=== PATIENT | female | born 1970 | race Asian ===

== ENCOUNTER 2019-08-24 10:00 | Outpatient (RCR) | payer BC, SELFPAY | END 2019-09-07 09:53 | disposition home or self-care (01) | LOC: PT.CARL 10:00 | PROVIDERS: Visit Provider Internal Medicine | DX: M75.40 Impingement syndrome of unspecified shoulder (principal) | CPT/HCPCS: 97010; 97014; 97033; 97110; 97140; 97163; G0283 ==

== ENCOUNTER 2024-02-02 12:39 | Outpatient (CLI) | payer OTHER, SELFPAY ==
[2024-02-02 13:14] LABS: Basophils # 0.1 K/mm3 (0-0.2); Basophils % 0.7 % (0.1-2.0); Eosinophils # 0.2 K/mm3 (0.0-0.4); Hematocrit 41.7 % (37.0-47.0); Lymphocytes # 1.6 K/mm3 (0.7-4.5); Lymphocytes % 23.4 % (10-50); Mean Corpuscular HGB Conc 31.1 g/dL (31.8-35.4); Mean Corpuscular Hemoglobin 22.8 pg (27.0-31.2); Mean Corpuscular Volume 73.4 fl (81-99); Mean Platelet Volume 6.5 fl (7.4-10.4); Monocytes # 0.2 K/mm3 (0.1-1.0); Monocytes % 3.6 % (1.7-9.3); Neutrophils # 4.6 K/mm3 (1.8-7.8); Neutrophils % 69.3 % (37.0-80.0); Platelet Count 297 K/mm3 (142-424); Red Blood Count 5.68 M/mm3 (4.20-5.40); Red Cell Distribution Width 15.6 % (11.5-17.5); White Blood Count 6.7 K/mm3 (4.8-10.8)
[2024-02-02 14:09] LABS: Alanine Aminotransferase 163 U/L (12-78); Albumin Level 4.5 g/dl (3.5-5.0); Albumin/Globulin Ratio 1.2 (1.1-1.8); Alkaline Phosphatase 136 U/L (38-126); Anion Gap 14.8 mEq/L (5-15); Aspartate Amino Transferase 78 U/L (14-36); Bilirubin,Total 0.7 mg/dl (0.2-1.3); Blood Urea Nitrogen 14 mg/dl (7-17); Calcium 10.5 mg/dl (8.4-10.2); Carbon Dioxide 27 mmol/L (22.0-30.0); Chloride 102 mmol/L (98-107); Chol/HDL Ratio 4.3 (1-3.5); Cholesterol 177 mg/dl (140-200); Estimated Glomerular Filt Rate 105 ml/min (>60); GFR (African American) 127 ML/MIN (>60); Globulin 3.7 g/dL (1.3-3.2); Glucose 90 mg/dl (74-100); HDL Cholesterol 41 mg/dl (40-60); Potassium 3.8 mmoL/L (3.5-5.1); Sodium 140 mmol/L (136-145); Total Protein,Serum 8.2 g/dl (6.3-8.2); Triglycerides 154 mg/dl (30-150); VLDL Cholesterol 31 mg/dL (0-40)
[2024-02-02 14:19] LABS: Direct LDL Cholesterol 91.56 mg/dL (100-129)
== END 2024-02-02 23:59 | disposition home or self-care (01) ==
LOC: LAB 12:42
PROVIDERS: PCP Student in an Organized Health Care Education/Training Program; Visit Provider Student in an Organized Health Care Education/Training Program
DX: I10 Essential (primary) hypertension (principal); E78.2 Mixed hyperlipidemia; Z13.1 Encounter for screening for diabetes mellitus
CPT/HCPCS: 36415; 80053; 80061; 83036; 85025

== ENCOUNTER 2024-02-11 12:19 | Outpatient (CLI) | payer OTHER, SELFPAY ==
[2024-02-11 13:07] LABS: Chloride 107 mmol/L (98-107); Sodium 141 mmol/L (136-145)
[2024-02-11 13:10] LABS: Blood Urea Nitrogen 15 mg/dl (7-17); Calcium 10.1 mg/dl (8.4-10.2); Carbon Dioxide 27 mmol/L (22.0-30.0); Estimated Glomerular Filt Rate 105 ml/min (>60); GFR (African American) 127 ML/MIN (>60); Glucose 96 mg/dl (74-100)
[2024-02-11 16:27] LABS: Intact Parathyroid Hormone 35.6 pg/mL (7.5-53.5)
[2024-02-12 19:15] LABS: Calcium, Ionized 5.7 mg/dL (4.5-5.6)
== END 2024-02-11 23:59 | disposition home or self-care (01) ==
LOC: LAB 12:20
PROVIDERS: PCP Student in an Organized Health Care Education/Training Program; Visit Provider Student in an Organized Health Care Education/Training Program
DX: E34.9 Endocrine disorder, unspecified (principal); I15.9 Secondary hypertension, unspecified
CPT/HCPCS: 36415; 80048; 82330; 83970

== ENCOUNTER 2025-01-28 12:08 | Outpatient (CLI) | payer OTHER, SELFPAY ==
--- OUTSIDE RECORDS SUMMARY | 2025-01-28 12:10 | XMS_ITS | Clinical Summary ---
Author Organization [facility] Address [address] [place] [address] Phone Care Team Providers Care Sleeve Wheel Maker Name Role Phone Refugio Schwarz Unavailable Unavailable Conditions or Problems Problem Name Problem Code Onset Date Status Entry Date Provider Comment Standard Description Annotate Elevated transaminases 357499986 (SNOMED CT) 01/27 Active 01/27 Afsaneh Brandt Elevated level of transaminase and lactic acid dehydrogenase Neutrophilic leukemoid reaction D72.823 (ICD-10-CM ) 01/13 Inactive 01/13 Janelle W Leukemoid reaction Salpingitis 49843527 (SNOMED CT) 01/20 Inactive 01/20 Janelle W Salpingitis Problem excluded fro m report: Acute Salpingitis/t ubo-ovarian abscess N70.03 (ICD-10-CM ) 01/13 Active 01/13 Janelle W Acute salpingitis and oophoritis Salpingitis 79824890 (SNOMED CT) 01/20 Removed 01/20 Luke Silva MD Salpingitis Acute tubo-ovarian abscess 946169223 (SNOMED CT) 01/13 Inactive 01/13 Hazel Selvin Acute salpingo-oopho ritis Benign Essential Hypertension 2786696 (SNOMED CT) 01/13 Active 01/13 Hazel Selvin Benign essential hypertension Neutrophilic leukemoid reaction D72.823 (ICD-10-CM ) 01/13 Removed 01/13 Hazel Selvin Leukemoid reaction Other obesity due to excess calories 814291411 (SNOMED CT) 01/13 Active 01/13 Osiel Garcia Simple obesity E. Coli sepsis A41.51 (ICD-10-CM ) 01/13 Active 01/13 Janelle Levine Sepsis due to Escherichia coli [E. coli] Medications Medication Instructions Start Date Stop Date Generic Name NDC Provider INVANZ 1 GM INTRAVENOUS SOLUTION RECONSTITUTED 1 gm IV Q 24hrs/OPAT ERTAPENEM SODIUM 67773853161 Annmarie Poon RN FLUCONAZOLE 100 MG TABS one tablet each day FLUCONAZOLE [id number] Luke Silva MD DIFLUCAN 200 MG TABS Take one by mouth once daily. FLUCONAZOLE [id number] Luke CALDERONANZ 1 GM INTRAVENOUS SOLUTION RECONSTITUTED 1 gm IV Q 24hrs/OPAT ERTAPENEM SODIUM 84738879355 Afsaneh Dale RN SINGULAIR 10 MG TABS by mouth daily MONTELUKAST SODIUM [id number] Osiel K LISINOPRIL 20 MG TABS by mouth daily LISINOPRIL [id number] Osiel K Medications Administered No information available. Allergies, Adverse Reactions, Alerts No information available. Results Date Name Value Unit Range Flag Description Office Visit: rm 11 MEDS REVIEW Done Documenta tion of current medications (procedure) ORALTOBACUSE Never Tobacco smoking status SMOK STATUS Never smoker Tobacco smoking status Lab Report: CBC WITH AUTO DI FFERENTIAL IMMATUREGRAN 0.01 10*3/MM3 0.00-0.03 Immature granulocytes [#/volume] in Blood BASO# 0.03 10*3/mm3 0.00-0.20 Basophils [#/vol ume] in Blood EOS ABSLT 0.23 10*3/uL 0.00-0.30 Eosinophi ls [#/volume] in Blood MONOSCT AUTO 0.28 10*3/uL 0.00-1.00 Monocy lina [#/volume] in Blood by Automated count LYMPHCT AUTO 1.82 10*3/mm3 0.60-4.80 Lymph ocytes [#/volume] in Blood by Automated count ABS NEUTROPH 4.65 10*3/uL 1.50-8.30 Neutro phils [#/volume] in Blood IMM GRANU % 0.1 % 0.0-0.6 Immature granulocytes/100 leukocytes in Blood [id number] 0.4 % 0.0-1.0 GE use only - for [employer] import when terms are not otherwise specified % EOS AUTO 3.3 % 0.0-3.0 H Eosinophil s/100 leukocytes in Blood by Automated count MONOCYTE % 4.0 % 0.0-12.0 Monocytes /100 leukocytes in Blood by Automated count LYMPHS % 25.9 % 24.0-44.0 Lymphocyte s/100 leukocytes in Blood by Automated count PMN % 66.3 % 41.0-71.0 Neutrophils /100 leukocytes in Blood by Automated count PLATELETS 337 10*3/mm3 150-450 Platelets [#/volume] in Blood by Automated count RDW 15.1 % 11.3-14.5 H Erythrocyte distribution width [Ratio] by Automated count MCHC 29.8 G/DL 32.0-36.0 L MCHC [Mass/ volume] by Automated count MCH 21.4 pg 27.0-31.0 L MCH [Entiti c mass] by Automated count MCV 71.5 fL 80.0-99.0 L MCV [Entiti c volume] by Automated count HCT 39.2 % 34.5-44.0 Hematocrit [Volume Fraction] of Blood by Automated count HGB 11.7 g/dL 11.5-15.5 Hemoglobin [Mass/volume] in Blood RBC 5.48 10*6/mm3 3.89-5.14 H Erythrocyt es [#/volume] in Blood by Automated count WBC 7.02 10*3/mm3 3.50-10.8 0 Leukocytes [#/volume] in Blood by Automated count Lab Report: BASIC METABOLIC PANEL ANIONGAP 8.0 mmol/L 3.0-11.0 anion gap, serum BUN/CREAT 18.3 7.0-25.0 Urea nitrogen/Creatinine [Mass Ratio] in Serum or Plasma GFRC 108 mL/min/1. 73m2 >60 Glomerular Filtration Rate Calculation CALCIUM 9.3 mg/dL 8.7-10.4 Calcium [Moles/volume] in Serum or Plasma CO2 25.0 mmol/L 20.0-31.0 Carbon diox parihs, total [Moles/volume] in Venous blood CHLORIDE 105 mmol/L 99-109 Chloride [Moles/volume] in Serum or Plasma POTASSIUM 4.0 mmol/L 3.5-5.5 Potassium [Moles/volume] in Serum or Plasma SODIUM 138 mmol/L 132-146 Sodium [Moles/volume] in Serum or Plasma CREATININE 0.60 mg/dL 0.60-1.30 Creatini ne [Mass/volume] in Serum or Plasma BUN 11 mg/dL 9-23 Urea nitrogen [Mass/volume] in Serum or Plasma GLUCOSE SER 186 mg/dL 70-100 H Glucose [Mass/volume] in Serum or Plasma Lab Report: SEDIMENTATION RA TE ESR 51 mm/h 0-20 H Erythrocyte sedimentation rate by Westergren method Lab Report: C-REACTIVE PROTE IN CRP 0.07 mg/dL 0.00-1.00 C reactive protein [Mass/volume] in Serum or Plasma Lab Report: HEPATIC FUNCTION PANEL BILI DIRECT 0.1 mg/dL 0.0-0.2 Bilirubin .direct [Mass/volume] in Serum or Plasma BILI TOTAL 0.3 mg/dL 0.3-1.2 Bilirubin. total [Mass/volume] in Serum or Plasma ALK PHOS 112 U/L 25-100 H Alkaline kelly sphatase [Enzymatic activity/volume] in Blood SGOT (AST) 36 U/L 0-33 H Aspartate aminotransferase [Enzymatic activity/volume] in Serum or Plasma SGPT (ALT) 71 U/L 7-40 H Alanine aminotransferase [Enzymatic activity/volume] in Serum or Plasma ALBUMIN 4.20 g/dL 3.20-4.80 Albumin [Mass/volume] in Serum or Plasma PROTEIN, TOT 8.0 g/dL 5.7-8.2 Protein [Mass/volume] in Serum or Plasma Clinical Lists Update: [facility] Patient's prefered method of contact Plan of Care Type Date Detail Referral CT scan ABD/Pelv is with contrast Referral CT scan ABD/Pelv is with contrast Pending order Hepatic Function Panel Pending order CBC with Differe ntial Pending order BMP Pending order Sedimentation Ra te (ESR) Pending order C- reactive prot ein Pending order BMP Pending order CBC with Differe ntial Pending order C- reactive prot ein Pending order Sedimentation Ra te (ESR) Pending order STAT Labs Pending order CMP Pending order CBC with Differe ntial Pending order Sedimentation Ra te (ESR) Pending order C- reactive prot ein Pending order STAT Labs Pending order PICC Removal Pending order Discontinue IV a ntibiotics Pending order New Oral Antibio tic Pending order CMP Pending order CBC with Differe ntial Pending order C- reactive prot ein Pending order Sedimentation Ra te (ESR) Pending order CMP Pending order CBC with Differe ntial Pending order C- reactive prot ein Pending order Sedimentation Ra te (ESR) Pending order Continue IV anti biotics Pending order CMP Pending order CBC with Differe ntial Pending order C- reactive prot ein Pending order Sedimentation Ra te (ESR) Pending order Weekly PICC Line Care Pending order Ertapenem Pending order PICC Line Insert ion Pending order Stat Weekly Labs Pending order Continue IV anti biotics Pending order Weekly PICC Line Care Pending order Weekly Labs (Con tinue) Pending order PICC Line Insert ion Pending order New IV antibioti c Pending order Ertapenem Pending order CMP Pending order CBC with Differe ntial Pending order C- reactive prot ein Pending order Sedimentation Ra te (ESR) Patient education Ertapenem%20(I njection)%20(Injectable) Patient education WEIGHT%20MANAG EMENT Patient education WEIGHT%20MANAG EMENT Patient education WEIGHT%20MANAG EMENT Patient education WEIGHT%20MANAG EMENT Patient education WEIGHT%20MANAG EMENT Patient education WEIGHT%20MANAG EMENT Patient education WEIGHT%20MANAG EMENT Patient education WEIGHT%20MANAG EMENT Patient education WEIGHT%20MANAG EMENT Patient education WEIGHT%20MANAG EMENT Patient education WEIGHT%20MANAG EMENT Patient education WEIGHT%20MANAG EMENT Patient education WEIGHT%20MANAG EMENT Patient education WEIGHT%20MANAG EMENT Patient education WEIGHT%20MANAG EMENT Patient education WEIGHT%20MANAG EMENT Procedures Code Procedure Name Date Entry Date CPT-71050 Hepatic Function Panel 04/08 [id number] CBC with Differential 2016 CPT-75212 BMP CPT-25955 Sedimentation Rate (ESR) 201 02/08/31 CPT-25855 C- reactive protein CPT-95621 BMP [id number] CBC with Differential 2016 CPT-26500 C- reactive protein CPT-07544 Sedimentation Rate (ESR) 201 02/08/10 CPT-05565 CT scan ABD/Pelvis with contrast CPT-sl STAT Labs CPT-63763 CMP [id number] CBC with Differential 2016 CPT-31956 Sedimentation Rate (ESR) 201 02/07/17 CPT-68932 C- reactive protein CPT-sl STAT Labs CPT-PICREM PICC Removal CPT-DC Discontinue IV antibiotics 2 CPT-yury New Oral Antibiotic CPT-00969 CMP [id number] CBC with Differential 2016 CPT-31789 C- reactive protein CPT-37471 Sedimentation Rate (ESR) 201 02/07/03 CPT-08756 CT scan ABD/Pelvis with contrast CPT-93721 CMP [id number] CBC with Differential 2016 CPT-79505 C- reactive protein CPT-96943 Sedimentation Rate (ESR) 201 02/06/26 CPT-ca Continue IV antibiotics 2016 CPT-79169 CMP [id number] CBC with Differential 2016 CPT-73361 C- reactive protein CPT-82602 Sedimentation Rate (ESR) 201 02/06/19 CPT-wpc Weekly PICC Line Care 01/20 CPT-J1335 Ertapenem CPT-79556 PICC Line Insertion CPT- stat weekly Stat Weekly Labs CPT-ca Continue IV antibiotics 2016 CPT-wpc Weekly PICC Line Care 01/13 CPT-cwl Weekly Labs (Continue) 01/13 CPT-34971 PICC Line Insertion CPT-maryann New IV antibiotic CPT-J1335 Ertapenem CPT-93687 CMP [id number] CBC with Differential 2016 CPT-18848 C- reactive protein CPT-25033 Sedimentation Rate (ESR) 201 02/07/12 Vital Signs Date Name Value Unit Description BMI (Body Mass Index) 32.58 kg/m2 Bod y Mass Index (Ratio) Body Temperature 98.7 [degF] temperat ure E&M BP Diastolic 68 mm[Hg] blood pressu re, diastolic BP Systolic 122 mm[Hg] blood pressur e, systolic Heart Rate 70 /min pulse rate Height 64 [in_us] height E&M Respiratory Rate 14 /min respirat ory rate E&M Weight Measured 189.8 [lb_av] weight E& M Weight Measured 189.8 [lb_av] weight E& M Immunizations No information available. Advance Directives Directive Description Start Date PATIENT DOES NOT HAVE ADVANCED DIRECTIVE S OF 01/13/17.
--- OUTSIDE RECORDS SUMMARY | 2025-01-28 12:11 | XMS_ITS | Referral Summary ---
Author Organization [facility] Address [address] [place] [address] Care Team Providers Care Packaging Sales Consultant Name Role Phone Lambert Quiroga MD Primary Care Provider +1- [phone] Encounters Date Type Department Care Team Description 01/18/2025 Refill [facility] Primary Care & Internal Med [address] [place] [address] Lambert Quiroga MD 12/24/2024 Refill [facility] Primary Care & Internal Med [address] [place] [phone] Lambert Quiroga MD from Last 3 Months Allergies Active Allergy Reactions Criticality Noted Date Comments Moxifloxacin Low 10/04/2022 1facial redness, rash per patient. Medications multivitamin per tablet Take 1 tablet by mouth daily. Active cetirizine (ZyrTEC) 10 MG tablet Take 1 tablet (10 mg total) by mouth daily. Active estradioL (ESTRACE) 1 MG tabletIndications: History of postmenopausal HRT Take 1 tablet (1 mg total) by mouth daily. 90 tablet 3 4 03/14/20 25 Active lisinopriL (ZESTRIL) 20 MG tablet Take 1 tablet (20 mg total) by mouth daily. 90 tablet 5 Active montelukast (SINGULAIR) 10 mg tablet Take 1 tablet (10 mg total) by mouth every morning. 90 tablet 5 Active montelukast (SINGULAIR) 10 mg tablet Take 1 tablet (10 mg total) by mouth every morning. 90 tablet 2 4 01/19/20 25 Discontinu ed(Reorder ) Active Problems Problem Noted Date Diagnosed Date Hepatitis C antibody test positive 10/10/2022 Overview (10/10/2022): RNA neg Hypertension 10/03/2022 Migraine headache 10/03/2022 Asthma 08/24/2020 Hormone replacement therapy 01/05/2020 Resolved Problems Problem Noted Date Diagnosed Date Resolved Date Seasonal allergic rhinitis 10/03/2022 0 01/30/2024 Benign essential hypertension 08/24/2020 01/30/2024 Mixed hypercholesterolemia a nd hypertriglyceridemia 01/10/2020 01/30/2024 Allergic rhinitis 01/05/2020 01/30/2024 Rotator cuff impingement syndrome 07/06/2019 01/30/2024 Immunizations Name Administration Dates Next Due Hepatitis A Adult 11/17/2018,04/21/2018 Hepatitis B 06/01/2022,01/10/2022,12/07/2021 Influenza Four-QIV 6MO+ PF IM ([id number]) 2 Influenza Four-QIV PF 18+ YR 05/22/2016 Influenza Four-qiv Pf 05/05/2021,04/27/2020,04/04 Influenza Three-TIV Non-PF 5+ YR 04/22/2018 Influenza Three-tiv Non-pf 04/21/2018 PPD Test 09/14/2019 Pneumococcal Conjugate (Prevnar) 13-Valent 02/20 Td 7+ years, (TDVAX) 2 Lf te tanus toxoid preservative free 07/04/2011 Tdap 04/27/2020 Varicella (VARIVAX) 08/02/1998,12/21/1997 Social History Tobacco Use Types Packs/Day Years Used Date Smoking Tobacco: Never Smokeless Tobacco: Never Tobacco Cessation:Counseling Given: Not Answered Alcohol Use Standard Drinks/Week Comments Yes 1 (1 standard drink = 0.6 oz pur e alcohol) PHQ-2 Answer Date Recorded Patient Health Questionnaire-2 Score 0 01/30/2024 Interpersonal Safety Answer Date Record ed Family or friends hurt you Not on file 08/22 Family or friends insult you Not on file Family or friends threaten you Not on file 0 08/22/2023 Family or friends scream or curse at you Not on file 08/22/2023 Housing Stability Answer Date Recorded Living situation today Not on file Living situation problems Not on file 2023 Family and Community Support Answer Oscar e Recorded Help with Day to Day Activities Not on file 08/22/2023 Feeling Lonely or Isolated Not on file 08/22 Educational Attainment Answer Date Hilario rded Speak language other than Tanzanian at home Not on file 08/22/2023 Want help with school or training Not on file 08/22/2023 Depression Answer Date Recorded PHQ-2 Risk Not on file 08/22/2023 Disabilities Answer Date Recorded Difficulty concentrating Not on file 024 Difficulty doing errands alone Not on file 0 08/22/2023 Substance Use Answer Date Recorded Used prescription meds for non-medical reasons N ot on file 08/22/2023 Used illegal drugs past 12 months Not on file 08/22/2023 Comments No Sex and Gender Information Value Date Recorded Sex Assigned at Not on file Legal Sex Female 3:37 PM CDT Gender Identity Not on file Sexual Orientation Not on file Last Filed Vital Signs Vital Sign Reading Time Taken Comments Blood Pressure 126/86 01/30/2024 9:13 AM EDT Pulse 83 01/30/2024 9:13 AM EDT Temperature 36.2 C (97.1 F) 01/24/2023 11:59 AM EDT Respiratory Rate 18 01/24/2023 11:5 9 AM EDT Oxygen Saturation 97% 01/30/2024 9:13 AM EDT Inhaled Oxygen Concentration - - Weight 85.6 kg (188 lb 12.8 oz) 01/30/2024 9:13 AM EDT Height 160 cm (5' 3 ) 01/30/2024 9:13 AM EDT Body Mass Index 33.44 01/30/2024 9:13 AM EDT Plan of Treatment Upcoming Encounters Date Type Department Care Team (Late st Contact Info) Description 02/11/2025 10:30 AM EDT Office Visit [facility] Primary Care & Internal Med [address] [place] [address] [phone] Lambert Quiroga MD [address] [place] [address] Procedures Procedure Name Priority Date/Time Associated Diagnosis Comments MM DIGITAL MAMMO SCREEN WITH EDSON BILATERAL Routine 07/06/2024 5:00 PM EST Encounter for screening mammogram for malignant neoplasm of breast HEPATITIS C ANTIBODY Routine 10/04/2022 12:09 PM EST Healthcare maintenance Need for hepatitis C screening test LIPID PANEL Routine 10/04/2022 12:09 PM EST Healthcare maintenance from Last 3 Months or Most Recently Relevant to Health Maintenance Results * MM digital mammo screen with edson bilateral (07/06/2024 5:00 PM EST) Anatomical Region Laterality Modality Breast Bilateral Mammography 07/06/2024 5:05 PM EST Impressions 07/06/2024 5:10 PM EST FINAL IMPRESSION: Stable mammogram. No findings suspicious for malignancy. ACR BI-RADS 2: Benign findings. RECOMMENDATIONS: Annual screening mammography. This report will serve as the order for the recommended imaging studies/procedures. A letter including results and recommendations was sent to the patient. Density notification was included for all patients. Patient information was entered into a reminder system with a target due date for the next mammogram. At our facility, a sitka marker is positioned over a visible skin lesion and a linear marker is used to indicate a scar. A triangular marker is placed on a self reported palpable finding. Note: Mammography does not detect approximately 10-15% of breast cancers. An annual clinical breast exam by the patient's breast care physician and regular monthly self breast exams by the patient are integral parts of breast cancer screening, in addition to annual mammography. A normal mammogram does not completely exclude the presence of breast cancer, especially if there is an abnormal finding on physical exam. When clinically indicated, a biopsy should not be deferred because of a normal mammogram report. Narrative 07/06/2024 5:10 PM EST PROCEDURE: Digital screening mammogram with Digital Breast Tomosynthesis (DBT). REASON FOR EXAM: Routine screening. FAMILY HISTORY: Strong family history of breast cancer. COMPARISON STUDY: 2022 through 2019 from [facility] FINDINGS: Craniocaudal and mediolateral oblique images of both breasts were obtained in 2D and DBT modes. Synthesized views were reconstructed from DBT data. The breast tissue has pattern b (scattered fibroglandular densities). Asymmetries are stable. There is no evidence of dominant mass, architectural distortion, or suspicious calcifications. The mammogram was interpreted with the benefit of computer aided detection (CAD). Lambert Quiroga MD IMG MAMMOGRAPHY ORDERABLES Final Result * (ABNORMAL) Hepatitis C antibody (10/04/2022 12:09 PM EST) Hep C Virus Ab Reactive( A) Non Reactive [facility] Comment: HCV antibody alone does not differentiate between previously resolved infection and active infection. Equivocal and Reactive HCV antibody results should be followed up with an HCV RNA test to support the diagnosis of active HCV infection. Blood 10/04/2022 12:0 9 PM EST 10/04/2022 Narrative [facility] - 10/07/2022 12:07 PM EST Performed at: [address] [id number] Gold Miner: Steven Saleem PhD, Phone: [phone] Lambert Quiroga MD LAB BLOOD ORDERABLES Final Result [facility] * (ABNORMAL) Lipid panel (10/04/2022 12:09 PM EST) Cholesterol, Total 162 100 - 199 mg/dL [facility] Triglycerides 68 0 - 149 mg/dL [facility] HDL Cholesterol 45 >39 mg/dL [facility] VLDL Cholesterol Prem 13 5 - 40 mg/dL [facility] LDL Calculated 104(H) 0 - 99 mg/dL [facility] Blood 10/04/2022 12:0 9 PM EST 10/04/2022 Narrative [facility] - 10/07/2022 12:07 PM EST Performed at: - [facility] [id number] Gold Miner: Steven Saleem PhD, Phone: [phone] us Lambert Quiroga MD LAB BLOOD ORDERABLES Final Result [facility] from Last 3 Months or Most Recently Relevant to Health Maintenance Insurance [facility] Care Teams Packaging Sales Consultant Relationship Specialty Start Date End Date Lambert Quiroga MD [address] [facility] [address] [place] [address] PCP - General Family Medicine 06/18/22
--- OUTSIDE RECORDS SUMMARY | 2025-01-28 12:11 | XMS_ITS | Encounter Summary ---
Author Organization [facility] Address [address] [place] [address] Care Team Providers Care Coremaking Supervisor Name Role Phone Lambert Quiroga MD Primary Care Provider +1- [phone] Reason for Visit * Reason Onset Date Comments Medication Refill 12/22/2023 Encounter Details Date Type Department Care Team (Late st Contact Info) Description 12/22/2023 Refill [facility] Primary Care & Internal Med [address] [place] [address] [address] [place] [phone] Lambert Quiroga MD [address] [place] [address] Social History Tobacco Use Types Packs/Day Years Used Date Smoking Tobacco: Never Smokeless Tobacco: Never Alcohol Use Standard Drinks/Week Comments Never 0 (1 standard drink = 0.6 oz pur e alcohol) PHQ-2 Answer Date Recorded Patient Health Questionnaire-2 Score 0 10/04/2022 Interpersonal Safety Answer Date Record ed Family [...] Date Hilario rded Speak language other than [place] Citizen at home Not on file 08/22/2023 Want [...] on file Sexual Orientation Not on file documented as of this encounter Plan of Treatment Upcoming Encounters Date Type Department Care Team (Late st Contact Info) Description 02/11/2025 10:30 AM EDT Office Visit [facility] Primary Care & Internal Med [address] [place], [place] [phone] Lambert Quiroga MD [address] [place] [address] documented as of this encounter Visit Diagnoses Not on filedocumented in this encounter Care Teams Coremaking Supervisor Relationship Specialty [place] [address] [place] [phone] PCP - General Family Medicine 06/18/22 documented as of this encounter
--- OUTSIDE RECORDS SUMMARY | 2025-01-28 12:11 | XMS_ITS | Encounter Summary ---
Author Organization [facility] Address [address] [place] [address] Care Team Providers Care Jalousies Installer Name Role Phone Lambert Quiroga MD Primary Care Provider +1- [phone] Reason for Visit * Reason Onset Date Comments Medication Refill 12/24/2024 Encounter Details Date Type Department Care Team (Late st Contact Info) Description 12/24/2024 Refill [facility] Primary Care & Internal Med [address] [facility] [address] [place] [phone] Lambert Quiroga MD [address] [place] [phone] Social History Tobacco Use Types Packs/Day Years Used Date Smoking Tobacco: Never Smokeless Tobacco: Never Alcohol Use Standard Drinks/Week Comments Yes 1 [...] Date Hilario rded Speak language other than Turkmen at home Not on file 08/22/2023 Want [...] Description 02/11/2025 10:30 AM EDT Office Visit [facility] Primary Care & Internal Med [address] [place], [place] [phone] Lambert Quiroga MD [address] [place] [address] documented as of this encounter Visit Diagnoses Not on filedocumented in this encounter Care Teams Jalousies Installer Relationship Specialty [place] [address] [place] [phone] PCP - General Family Medicine 06/18/22 documented as of this encounter
--- OUTSIDE RECORDS SUMMARY | 2025-01-28 12:11 | XMS_ITS | Encounter Summary ---
Author Organization [facility] Address [address] [place] [address] Care Team Providers Care Monorail Operator Name Role Phone Lambert Quiroga MD Primary Care Provider +1- [phone] Reason for Visit * Reason Onset Date Comments Medication Refill 01/18/2025 Encounter Details Date Type Department Care Team (Late st Contact Info) Description 01/18/2025 Refill [facility] Primary Care & Internal Med [address] [facility] [address] [place] [phone] Lambert Quiroga MD [address] [place] [phone] Social History Tobacco Use Types Packs/Day [...] on file 08/22 Educational Attainment Answer Date Hliario rded Speak language other than Niuean at home Not on file 08/22/2023 Want [...] Description 02/11/2025 10:30 AM EDT Office Visit [facility] Primary Care & Internal Med [address] [place], [place] [phone] Lambert Quiroga MD [address] [place] [address] documented as of this encounter Visit Diagnoses Not on filedocumented in this encounter Care Teams Monorail Operator Relationship Specialty [place] [address] [place] [phone] PCP - General Family Medicine 06/18/22 documented as of this encounter
--- OUTSIDE RECORDS SUMMARY | 2025-01-28 12:11 | XMS_ITS | Encounter Summary ---
Author Organization [facility] [employer] Address [address] [place] [address] Care Team Providers Care It Consultant Name Role Phone Lambert Quiroga MD Primary Care Provider +1- [phone] Reason for Visit * Reason Onset Date Comments Medication Refill 12/14/2022 Encounter Details Date Type Department Care Team (Late Contact Info) Description 12/14/2022 Refill [facility] Primary Care & Internal Med [address] [place] [phone] Lambert Quiroga MD [address] [place] [phone] Social History Tobacco Use Types Packs/Day Years Used Date Smoking Tobacco: Never Smokeless Tobacco: Never PHQ-2 Answer Date Recorded Patient Health Questionnaire-2 Score 0 10/04/2022 Comments No Sex and Gender Information Value Date Recorded Sex Assigned at Not on file Legal Sex Female 3:37 PM CDT Gender Identity Not on file Sexual Orientation Not on file COVID-19 Exposure Response Date Recorded In the last 10 days, have yo u been in contact with someone who was confirmed or suspected to have Coronavirus/COVID-19? No / Unsure 12/11/2022 11:44 AM EDT documented as of this encounter Plan of Treatment Upcoming Encounters Date Type Department Care Team (Late Contact Info) Description 02/11/2025 10:30 AM EDT Office Visit [facility] Primary Care & Internal Med [address] [place] [phone] Lambert Quiroga MD [address] [facility] [address] [place] [address] documented as of this encounter Visit Diagnoses Not on filedocumented in this encounter Care Teams It Consultant Relationship Specialty Start Date End Date Lambert Quiroga MD [address] [facility] [address] [place] [address] PCP - General Family Medicine 06/18/22 documented as of this encounter
--- OUTSIDE RECORDS SUMMARY | 2025-01-28 12:11 | XMS_ITS | Encounter Summary ---
Author Organization [employer] Address [address] [place] [address] Care Team Providers Care Shipping Manager Name Role Phone Lambert Quiroga MD Primary Care Provider +1- [phone] Reason for Visit * Reason Comments Medication Refill Encounter Details Date Type Department Care Team ([facility] Contact Info) Description 06/10/2023 Refill [facility] Primary Care & Internal Med [address] [place], [place] [phone] Lambert Quiroga MD [address] [place] [phone] Social History Tobacco Use Types Packs/Day [...] Upcoming Encounters Date Type Department Care Team ([facility] Contact Info) Description 02/11/2025 10:30 AM EDT Office Visit [facility] Primary Care & Internal Med [address] [place] [phone] Lambert Quiroga MD [address] [place] [phone] documented as of this encounter Visit Diagnoses Not on filedocumented in this encounter Care Teams Shipping Manager Relationship Specialty Start Date End Date Lambert Quiroga MD [address] [facility] [address] [place] [phone] PCP - General Family Medicine 06/18/22 documented as of this encounter
--- OUTSIDE RECORDS SUMMARY | 2025-01-28 12:11 | XMS_ITS | Clinical Summary ---
Author Organization [employer] Address [address] [place] [address] Care Team Providers Care Call Center Operator Name Role Phone Lambert Quiroga MD Primary Care Provider +1- [phone] Allergies Active Allergy Reactions Criticality Noted Date [...] 01/30/2024 Rotator cuff impingement syndrome 07/06/2019 01/30/2024 Encounters Date Type Department Care Team Description 01/18/2025 Refill [facility] Primary Care & Internal Med [address] [place], [place] [phone] Lambert Quiroga MD 12/24/2024 Refill [facility] Primary Care & Internal Med [address] [place] [phone] Lambert Quiroga MD from Last 3 Months Immunizations Name Administration Dates Next Due Hepatitis A Adult 11/17/2018,04/21/2018 Hepatitis B 06/01/2022,01/10/2022,12/07/2021 Influenza Four-QIV 6MO+ PF IM ([id number]) 2 Influenza Four-QIV PF 18+ YR 05/22/2016 Influenza Four-qiv Pf 05/05/2021,04/27/2020,04/04 Influenza Three-TIV Non-PF 5+ YR 04/22/2018 Influenza Three-tiv Non-pf 04/21/2018 PPD Test 09/14/2019 Pneumococcal Conjugate (Prevnar) 13-Valent 02/20 Td 7+ years, (TDVAX) 2 Lf te tanus toxoid preservative free 07/04/2011 Tdap 04/27/2020 Varicella (VARIVAX) 08/02/1998,12/21/1997 Family History Medical History Relation Name Comments Arthritis Brother Clive Gout Hypertension Brother Clive Stroke Brother Clive Arthritis Father Clive Gout Colon cancer Father Clive Hypertension Father Clive Diabetes Mother [place] Heart disease Mother [place] Hypertension Mother Maryam Migraines Mother [place] Stroke Mother Maryam Thyroid disease Mother Maryam Arthritis Other Glaucoma Other Breast cancer Sister Eileen Hypertension Sister Eileen Thyroid disease Sister Eileen Relation Name Status Comments Brother Clive Father Clive Mother Maryam Other Sister Eileen Social History Tobacco Use Types Packs/Day Years [...] Date Hilario rded Speak language other than Venezuelan at home Not on file 08/22/2023 Want [...] Description 02/11/2025 10:30 AM EDT Office Visit [facility] Primary Care & Internal Med [address] [facility] [address] [phone] Lambert Quiroga MD [address] [place] [phone] Health Maintenance Due Date Last Done Comments CT Colonography 1972 FOBT/FIT 1972 Fit-DNA (Cologuard) 1972 Sigmoidoscopy 1972 Pneumococcal 50+ years (2 of 2 - PPSV23) 04/17/2015 02/20/2015 Shingles Vaccine (Zoster) (1 of 2) 01/01/2022 COVID-19 VACCINE (4 - 2023-2 5 season) 2024 05/17/2021, 09/28/2020, 08/31/2020 Depression Screening (12+) 01/29/2025 01/30/2024 Tobacco Cessation Counseling and Screening (12+) 01/29/2025 01/30/2024 Lipid Panel 10/04/2025 10/04/2022 Breast Cancer Screening 07/06/2026 07/06/20, 12/11/2022, 06/18/2022, Additional history exists DTAP/TDAP/TD VACCINES (3 - T d or Tdap) 04/27/2030 04/27/2020, 07/04/2011 Colonoscopy 01/24/2033 01/24/2023, 05/20/2018 Colorectal Cancer Screening 01/24/2033 Pap Smear Discontinued 11/27/2016 Hepatitis C Screening Completed 10/04/2022, 022 Influenza Vaccine Completed 05/21/2024, , 04/22/2018, Additional history exists HIV Screening Discontinued Procedures Procedure Name Priority Date/Time Associated Diagnosis [...] the next mammogram. At our facility, a [place] marker is positioned over a visible skin [...] cancer. COMPARISON STUDY: 2022 through 2019 from [facility] FINDINGS: Craniocaudal and mediolateral oblique images of [...] Hepatitis C antibody (10/04/2022 12:09 PM EST) Pathologist [facility] Hep C Virus Ab Reactive( A) Non Reactive [facility] Comment: HCV antibody alone does not differentiate between previously resolved infection and active infection. Equivocal and Reactive HCV antibody results should be followed up with an HCV RNA test to support the diagnosis of active HCV infection. Blood 10/04/2022 12:0 9 PM EST 10/04/2022 Narrative [facility] - 10/07/2022 12:07 PM EST Performed at: [address] [id number] Auto Salvage Worker: Steven Saleem PhD, Phone: [phone] Lambert Quiroga MD LAB BLOOD ORDERABLES Final Result Performing Organization Address City/[facility] Co de Phone Number [facility] * (ABNORMAL) Lipid panel (10/04/2022 12:09 PM EST) Pathologist [facility] Cholesterol, Total 162 100 - 199 mg/dL [facility] Triglycerides 68 0 - 149 mg/dL [facility] HDL Cholesterol 45 >39 mg/dL [facility] VLDL Cholesterol Prem 13 5 - 40 mg/dL [facility] LDL Calculated 104(H) 0 - 99 mg/dL [facility] Blood 10/04/2022 12:0 9 PM EST 10/04/2022 Narrative [facility] - 10/07/2022 12:07 PM EST Performed at: [address] [id number] Auto Salvage Worker: Steven Saleem PhD, Phone: [phone] Lambert Quiroga MD LAB BLOOD ORDERABLES Final Result Performing Organization Address City/[facility]/ZIP Co de Phone Number [facility] from Last 3 Months or Most Recently Relevant to Health Maintenance Insurance [facility] Care Teams Call Center Operator Relationship Specialty Start Date End Date Lambert Quiroga MD [address] [facility] [address] [place] [address] PCP - General Family Medicine 06/18/22
--- NOTE | 2025-01-28 12:13 | XR_ITS ---
FINAL REPORT CLINICAL HISTORY: pain/swelling since friday pain not improving COMPARISON: None FINDINGS: Two views of the right foot were obtained. There is no acute fracture or subluxation. There is mild degenerative change of the 1st MTP joint. Mild hallux valgus deformity is noted. There is no acute soft tissue abnormality. IMPRESSION: No acute abnormality identified. Reviewed, Interpreted and Dictated by Delbert Mooney MD Transcribed by Kimi Domínguez Authenticated and [facility]
--- NOTE | 2025-01-28 12:13 | XR_ITS ---
FINAL REPORT CLINICAL HISTORY: RIGHT ANKLE STRAIN AND SWELLING pain/swelling since friday pain not improving COMPARISON: None FINDINGS: Two views of the right ankle were obtained. There is no acute fracture or dislocation. The joint spaces are well preserved. There is no acute soft tissue abnormality. IMPRESSION: No acute abnormality identified. Reviewed, Interpreted and Dictated by Delbert Mooney MD Transcribed by Kimi Domínguez Authenticated and . [facility]
== END 2025-01-28 23:59 | disposition home or self-care (01) ==
LOC: RAD 12:09
PROVIDERS: PCP Student in an Organized Health Care Education/Training Program
DX: M79.89 Other specified soft tissue disorders (principal)
CPT/HCPCS: 73600; 73620

== ENCOUNTER 2025-02-08 12:13 | Outpatient (CLI) | payer OTHER, SELFPAY ==
--- OUTSIDE RECORDS SUMMARY | 2025-02-08 12:16 | XMS_ITS | Encounter Summary ---
Author Organization [employer] ([place], [place], [place], [place]) Address [address] [place] [address] Care Team Providers Care Aircraft Sales Representative Name Role Phone Lambert Quiroga MD Primary Care Provider +1- [phone] Reason for Visit * Reason Onset Date Comments Medication Refill 12/14/2022 Encounter Details Date Type Department Care Team (Late Contact Info) Description 12/14/2022 Refill [facility] Primary Care & Internal Med [address] [place] [phone] Lambert Quiroga MD [address] [place] [phone] Social History Tobacco Use Types Packs/Day Years Used Date Smoking Tobacco: Never Smokeless Tobacco: Never Comments No Sex and Gender Information Value [...] Description 02/11/2025 10:30 AM EDT Office Visit [facility] Primary Care & Internal Med [address] [place] [phone] Lambert Quiroga MD [address] [facility] [address] [place] [address] documented as of this encounter Visit Diagnoses Not on filedocumented in this encounter Care Teams Aircraft Sales Representative Relationship Specialty Start Date End Date Lambert Quiroga MD [address] [facility] [address] [place] [address] PCP - General Family Medicine 06/18/22 documented as of this encounter
--- OUTSIDE RECORDS SUMMARY | 2025-02-08 12:16 | XMS_ITS | Encounter Summary ---
Author Organization [employer] ([place], [place], [place], [place]) Address [address] [place] [address] Care Team Providers Care Real Estate Office Manager Name Role Phone Lambert Quiroga MD Primary Care Provider +1- [phone] Reason for Visit * Reason Onset Date Comments Medication Refill 01/18/2025 Encounter Details Date Type Department Care Team (Late st Contact Info) Description 01/18/2025 Refill [facility] Primary Care & Internal Med [address] [phone] Lambert Quiroga MD [address] [place] [phone] Social History Tobacco Use Types Packs/Day Years Used Date Smoking Tobacco: Never Smokeless Tobacco: Never Alcohol Use Standard Drinks/Week Comments Yes 1 (1 standard drink = 0.6 oz pur e alcohol) Family and Community Support Answer Oscar e Recorded Help with Day to Day Activities Not on file 08/22/2023 Feeling Lonely or Isolated Not on file 08/22 Educational Attainment Answer Date Hilario rded Speak language other than Russian at home Not on file 08/22/2023 Want help with school or training Not on file 08/22/2023 Substance Use Answer Date Recorded Used [...] Description 02/11/2025 10:30 AM EDT Office Visit [facility] Primary Care & Internal Med [address] [place] [phone] Lambert Quiroga MD [address] [place] [phone] documented as of this encounter Visit Diagnoses Not on filedocumented in this encounter Care Teams Real Estate Office Manager Relationship Specialty [place] [address] [place] [phone] PCP - General Family Medicine 06/18/22 documented as of this encounter
--- OUTSIDE RECORDS SUMMARY | 2025-02-08 12:16 | XMS_ITS | Referral Summary ---
Author Organization [employer] ([place], [place], [place], [place]) Address [address] [place] [address] Care Team Providers Care Slitting Machine Operator Helper Name Role Phone Lambert Quiroga MD Primary Care Provider +1- [phone] Encounters Date Type Department Care Team Description 01/31/2025 Orders Only [facility] Primary Care & Internal Med [address] [place] [phone] ProviderSandra MD 01/18/2025 Refill [facility] Primary Care & Internal Med [address] [place] [phone] Lambert Quiroga MD 12/24/2024 Refill [facility] Primary Care & Internal Med [address] [place] [phone] Lambert Quiroga MD from Last 3 [...] B 06/01/2022,01/10/2022,12/07/2021 Influenza Four-QIV 6MO+ PF IM ([id number]) 2 Influenza Four-QIV PF 18+ YR 05/22/2016 [...] Date Hilario rded Speak language other than Egyptian at home Not on file 08/22/2023 Want [...] Description 02/11/2025 10:30 AM EDT Office Visit [facility] Primary Care & Internal Med [address] [facility] [address] [phone] Lambert Quiroga MD [address] [place] [phone] Procedures Procedure Name Priority Date/Time Associated Diagnosis Comments EXTERNAL IMAGING - XR Routine 01/28/2025 11:04 AM EDT EXTERNAL IMAGING - XR Routine 01/28/2025 11:03 AM EDT MM DIGITAL MAMMO SCREEN WITH EDSON BILATERAL Routine 07/06/2024 5:00 PM EST Encounter for screening mammogram for malignant neoplasm of breast HEPATITIS C ANTIBODY Routine 10/04/2022 12:09 PM EST Healthcare maintenance Need for hepatitis C screening test LIPID PANEL Routine 10/04/2022 12:09 PM EST Healthcare maintenance from Last 3 Months or Most Recently Relevant to Health Maintenance Results * EXTERNAL IMAGING - XR (01/28/2025 11:04 AM EDT) Only the most recent of2 resultswithin the time period is included. Anatomical Region Laterality Modality Other us Historical Provider MD HEALTH MAINTENANCE Final Result * MM digital mammo screen with edson [...] the next mammogram. At our facility, a [place] marker is positioned over a visible skin [...] cancer. COMPARISON STUDY: 2022 through 2019 from [facility] FINDINGS: Craniocaudal and mediolateral oblique images [...] 10/07/2022 12:07 PM EST Performed at: - [facility] [id number] Secretarial Teacher: Steven Saleem PhD, Phone: [phone] Lambert Quiroga MD LAB BLOOD ORDERABLES Final [...] 10/07/2022 12:07 PM EST Performed at: 02 - [facility] [address] [id number] Secretarial Teacher: Steven Saleem PhD, Phone: [phone] Lambert Quiroga MD LAB BLOOD ORDERABLES Final Result [facility] from Last 3 Months or Most Recently Relevant to Health Maintenance Insurance [facility] Care Teams Slitting Machine Operator Helper Relationship Specialty Start Date End Date Lambert Quiroga MD [address] [facility] [address] [place] [address] PCP - General Family Medicine 06/18/22
--- OUTSIDE RECORDS SUMMARY | 2025-02-08 12:16 | XMS_ITS | Clinical Summary ---
Author Organization [employer] ([place], [place], [place], [place]) Address [address] [place] [address] Care Team Providers Care Racing Driver Name Role Phone Lambert Quiroga MD Primary Care Provider +1- [phone] Allergies Active Allergy Reactions Criticality Noted Date [...] Department Care Team Description 01/31/2025 Orders Only [facility] Primary Care & Internal Med [address] [place], [place] [phone] Sandra Barragan MD 01/18/2025 Refill [facility] Primary Care & Internal Med [address] [place] [phone] Lambert Quiroga MD 12/24/2024 Refill [facility] Primary Care & Internal Med [address] [place] [phone] Lambert Quiroga MD from Last 3 Months Immunizations Name Administration Dates Next Due Hepatitis A Adult 11/17/2018,04/21/2018 Hepatitis B 06/01/2022,01/10/2022,12/07/2021 Influenza Four-QIV 6MO+ PF IM ([id number]) 2 Influenza Four-QIV PF 18+ YR 05/22/2016 [...] Father Clive Hypertension Father Clive Diabetes Mother Maryam Heart disease Mother Maryam Hypertension Mother Maryam Migraines Mother Maryam Stroke Mother Maryam Thyroid disease Mother Maryam [...] Date Hilario rded Speak language other than Micronesian at home Not on file 08/22/2023 Want [...] Description 02/11/2025 10:30 AM EDT Office Visit [facility] Primary Care & Internal Med [address] [place] [address] [phone] Lambert Quiroga MD [address] [facility] [address] [place] [phone] Health Maintenance Due Date Last Done Comments CT Colonography 1972 FOBT/FIT 1972 Fit-DNA (Cologuard) 1972 Sigmoidoscopy 1972 Pneumococcal 50+ years (2 of 2 - PPSV23) 04/17/2015 02/20/2015 Shingles Vaccine (Zoster) (1 of 2) 01/01/2022 COVID-19 VACCINE (4 - 2023-2 5 season) 2024 05/17/2021, 09/28/2020, 08/31/2020 Depression Screening (12+) 01/29/2025 01/30/2024 Tobacco Cessation Counseling and Screening (12+) 01/29/2025 01/30/2024 Influenza Vaccine (#1) 2025 , 06/01/2022, 04/22/2018, Additional history exists Lipid Panel 10/04/2025 10/04/2022 Breast Cancer Screening 07/06/2026 07/06/20, 12/11/2022, 06/18/2022, Additional history exists DTAP/TDAP/TD VACCINES (3 - T d or Tdap) 04/27/2030 04/27/2020, 07/04/2011 Colonoscopy 01/24/2033 01/24/2023, 05/20/2018 Colorectal Cancer Screening 01/24/2033 Pap Smear Discontinued 11/27/2016 Hepatitis C Screening Completed 10/04/2022, 022 HIV Screening Discontinued Procedures Procedure Name Priority [...] Region Laterality Modality Other us Historical Provider HEALTH MAINTENANCE Final Result * MM digital [...] the next mammogram. At our facility, a [place] marker is positioned over a visible skin [...] cancer. COMPARISON STUDY: 2022 through 2019 from [facility] FINDINGS: Craniocaudal and mediolateral oblique images [...] C antibody (10/04/2022 12:09 PM EST) Pathologist [facility] Hep C Virus Ab Reactive( A) Non Reactive [facility] Comment: HCV antibody alone does not differentiate between previously resolved infection and active infection. Equivocal and Reactive HCV antibody results should be followed up with an HCV RNA test to support the diagnosis of active HCV infection. Blood 10/04/2022 12:0 9 PM EST 10/04/2022 Narrative [facility] - 10/07/2022 12:07 PM EST Performed at: [address] [id number] Print Support Specialist: Steven Saleem PhD, Phone: [phone] Lambert Quiroga MD LAB BLOOD ORDERABLES Final Result Performing Organization Address City/[facility]/ZIP Co de Phone Number [facility] * (ABNORMAL) Lipid panel (10/04/2022 12:09 PM EST) Pathologist [facility] Cholesterol, Total 162 100 - 199 mg/dL [facility] Triglycerides 68 0 - 149 mg/dL [facility] HDL Cholesterol 45 >39 mg/dL [facility] VLDL Cholesterol Prem 13 5 - 40 mg/dL [facility] LDL Calculated 104(H) 0 - 99 mg/dL [facility] Blood 10/04/2022 12:0 9 PM EST 10/04/2022 Narrative [facility] - 10/07/2022 12:07 PM EST Performed at: [address] [id number] Print Support Specialist: Steven Saleem PhD, Phone: [phone] Lambert Quiroga MD LAB BLOOD ORDERABLES Final Result Performing Organization Address City/[facility]/ZIP Co de Phone Number [facility] from Last 3 Months or Most Recently Relevant to Health Maintenance Insurance [facility] Care Teams Racing Driver Relationship Specialty Start Date End Date Lambert Quiroga MD [address] [facility] [address] [place] [address] PCP - General Family Medicine 06/18/22
--- OUTSIDE RECORDS SUMMARY | 2025-02-08 12:16 | XMS_ITS | Clinical Summary ---
Author Organization [facility] Address [address] 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 (ICD-10-CM ) 01/13 Inactive 01/13 Janelle W Leukemoid reaction Salpingitis 53782470 (SNOMED CT) 01/20 Inactive 01/20 Janelle W Salpingitis Problem excluded fro m report: Acute Salpingitis/t ubo-ovarian abscess N70.03 (ICD-10-CM ) 01/13 Active 01/13 Janelle W Acute salpingitis and oophoritis Salpingitis 97812405 (SNOMED CT) 01/20 Removed 01/20 Luke Silva MD Salpingitis Acute tubo-ovarian abscess 523088097 (SNOMED CT) 01/13 Inactive 01/13 Hazel Selvin Acute salpingo-oopho ritis Benign Essential Hypertension 6001149 (SNOMED CT) 01/13 Active 01/13 Hazel Selvin Benign essential hypertension Neutrophilic leukemoid reaction D72.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 Coli sepsis A41.51 (ICD-10-CM ) 01/13 Active 01/13 Janelle Levine Sepsis due to Escherichia coli [E. coli] Medications Medication Instructions Start Date Stop Date Generic Name NDC Provider INVANZ 1 GM INTRAVENOUS SOLUTION RECONSTITUTED 1 gm IV Q 24hrs/OPAT ERTAPENEM SODIUM [id number] Annmarie Poon RN FLUCONAZOLE 100 MG TABS one tablet each day FLUCONAZOLE [id number] Luke Silva MD DIFLUCAN 200 MG TABS Take one by mouth once daily. FLUCONAZOLE [id number] Luke CALDERONANZ 1 GM INTRAVENOUS SOLUTION RECONSTITUTED 1 gm IV Q 24hrs/OPAT ERTAPENEM SODIUM 61916121286 Afsaneh Dale RN SINGULAIR 10 MG TABS by mouth daily MONTELUKAST SODIUM 70551886295 Osiel K LISINOPRIL 20 MG TABS by mouth daily LISINOPRIL 96843530483 Osiel K Medications Administered No information available. [...] Plasma CO2 25.0 mmol/L 20.0-31.0 Carbon diox parish, total [Moles/volume] in Venous blood CHLORIDE 105 [...] in Serum or Plasma Clinical Lists Update: [facility] METHCONTACT cell Patient's prefered method of contact [...] Procedures Code Procedure Name Date Entry Date CPT-88669 Hepatic Function Panel 04/08 [id number] CBC with Differential 2016 CPT-78217 BMP CPT-10936 Sedimentation Rate (ESR) 201 02/08/31 CPT-36380 C- reactive protein CPT-92316 BMP [id number] CBC with Differential 2016 CPT-85203 C- reactive protein CPT-53273 Sedimentation Rate (ESR) 201 02/08/10 CPT-76281 CT scan ABD/Pelvis with contrast CPT-sl STAT Labs CPT-55347 CMP [id number] CBC with Differential 2016 CPT-36372 Sedimentation Rate (ESR) 201 02/07/17 CPT-48418 C- reactive protein CPT-sl STAT Labs CPT-PICREM PICC Removal CPT-DC Discontinue IV antibiotics 2 CPT-yury New Oral Antibiotic CPT-35984 CMP [id number] CBC with Differential 2016 CPT-39247 C- reactive protein CPT-97173 Sedimentation Rate (ESR) 201 02/07/03 CPT-87159 CT scan ABD/Pelvis with contrast CPT-33319 CMP [id number] CBC with Differential 2016 CPT-09859 C- reactive protein CPT-67965 Sedimentation Rate (ESR) 201 02/06/26 CPT-ca Continue IV antibiotics 2016 CPT-65741 CMP [id number] CBC with Differential 2016 CPT-88260 C- reactive protein CPT-31085 Sedimentation Rate (ESR) 201 02/06/19 CPT-wpc Weekly PICC Line Care 01/20 CPT-J1335 Ertapenem CPT-32436 PICC Line Insertion CPT- stat weekly Stat Weekly Labs CPT-ca Continue IV antibiotics 2016 CPT-wpc Weekly PICC Line Care 01/13 CPT-cwl Weekly Labs (Continue) 01/13 CPT-38831 PICC Line Insertion CPT-maryann New IV antibiotic CPT-J1335 Ertapenem CPT-13136 CMP [id number] CBC with Differential 2016 CPT-72935 C- reactive protein CPT-35195 Sedimentation Rate (ESR) 201 02/07/12 Vital Signs [...]
--- OUTSIDE RECORDS SUMMARY | 2025-02-08 12:16 | XMS_ITS | Encounter Summary ---
Author Organization [employer] ([place], [place], [place], [place]) Address [address] [place] [address] Care Team Providers Care Manager Engine Name Role Phone Lambert Quiroga MD Primary Care Provider +1- [phone] Reason for Visit * Reason Onset Date Comments Medication Refill 12/22/2023 Encounter Details Date Type Department Care Team (Late st Contact Info) Description 12/22/2023 Refill [facility] [address] [address] Lambert Quiroga MD [address] [place] [phone] Social History Tobacco Use Types Packs/Day [...] Date Hilario rded Speak language other than Samoan at home Not on file 08/22/2023 Want [...] Description 02/11/2025 10:30 AM EDT Office Visit [facility] [address] [place] [phone] Lambert Quiroga MD [address] [place] [phone] documented as of this encounter Visit Diagnoses Not on filedocumented in this encounter Care Teams Manager Engine Relationship Specialty [place] [address] [place] [phone] PCP - General Family Medicine 06/18/22 documented as of this encounter
--- OUTSIDE RECORDS SUMMARY | 2025-02-08 12:16 | XMS_ITS | Encounter Summary ---
Author Organization [employer] ([place], [place], [place], [place]) Address [address] [place] [address] Care Team Providers Care Spike Driver Name Role Phone Lambert Quiroga MD Primary Care Provider +1- [phone] Encounter Details Date Type Department Care Team ([facility] Contact Info) Description 01/31/2025 Orders Only [facility] Med [address] [place] [address] [phone] Provider, MD Sandra [address] [place] [address] Social History Tobacco Use Types Packs/Day Years [...] Date Hilario rded Speak language other than Tongan at home Not on file 08/22/2023 Want [...] Description 02/11/2025 10:30 AM EDT Office Visit [facility] [address] [phone] Lambert Quiroga MD [address] [phone] documented as of this encounter Procedures Procedure Name Priority Date/Time Associated Diagnosis Comments EXTERNAL IMAGING - XR Routine 01/28/2025 11:04 AM EDT EXTERNAL IMAGING - XR Routine 01/28/2025 11:03 AM EDT documented in this encounter Results * EXTERNAL IMAGING - XR (01/28/2025 11:04 AM EDT) Anatomical Region Laterality Modality Other Historical Provider HEALTH MAINTENANCE Final Result * EXTERNAL IMAGING - XR (01/28/2025 11:03 AM EDT) Anatomical Region Laterality Modality Other us Historical Provider HEALTH MAINTENANCE Final Result documented in this encounter Visit Diagnoses Not on filedocumented in this encounter Care Teams Spike Driver Relationship Specialty Start Date End Date Lambert Quiroga MD [address] [address] PCP - General Family Medicine 06/18/22 documented as of this encounter
--- OUTSIDE RECORDS SUMMARY | 2025-02-08 12:16 | XMS_ITS | Encounter Summary ---
Author Organization [employer] ([place], [place], [place], [place]) Address [address] [place] [address] Care Team Providers Care Driller Brake Lining Name Role Phone Lambert Quiroga MD Primary Care Provider +1- [phone] Reason for Visit * Reason Comments Medication Refill Encounter Details Date Type Department Care Team (Late Contact Info) Description 06/10/2023 Refill [facility] Internal Med [address] [place] [phone] Lambert Quiroga MD [address] [place], [place] [address] [address] Social History Tobacco Use Types Packs/Day Years Used Date Smoking Tobacco: Never Smokeless Tobacco: Never Alcohol Use Standard Drinks/Week Comments Never 0 (1 standard drink = 0.6 oz pur e alcohol) Comments No Sex and Gender Information Value Date Recorded Sex Assigned at Not on file Legal Sex Female 3:37 PM CDT Gender Identity Not on file Sexual Orientation Not on file documented as of this encounter Plan of Treatment Upcoming Encounters Date Type Department Care Team (Late Contact Info) Description 02/11/2025 10:30 AM EDT Office Visit [facility] [address] [place] [phone] Lambert Quiroga MD [address] [place], [place] [address] [address] documented as of this encounter Visit Diagnoses Not on filedocumented in this encounter Care Teams Driller Brake Lining Relationship Specialty Start Date End Date Lambert Quiroga MD [address] [place] [phone] PCP - General Family Medicine 06/18/22 documented as of this encounter
--- OUTSIDE RECORDS SUMMARY | 2025-02-08 12:16 | XMS_ITS | Encounter Summary ---
Author Organization [employer] ([place], [place], [place], [place]) Address [address] [place] [address] Care Team Providers Care Fishing Rod Marker Name Role Phone Lambert Quiroga MD Primary Care Provider +1- [phone] Reason for Visit * Reason Onset Date Comments Medication Refill 12/24/2024 Encounter Details Date Type Department Care Team (Late st Contact Info) Description 12/24/2024 Refill [facility] Med [address] [phone] Lambert Quiroga MD [address] [place] [phone] Social History Tobacco Use Types Packs/Day [...] Date Hilario rded Speak language other than Beninese at home Not on file 08/22/2023 Want [...] Description 02/11/2025 10:30 AM EDT Office Visit [facility] Med [address] [place] [phone] Lambert Quiroga MD [address] [place] [phone] documented as of this encounter Visit Diagnoses Not on filedocumented in this encounter Care Teams Fishing Rod Marker Relationship Specialty Start [place] [address] [place] [phone] PCP - General Family Medicine 06/18/22 documented as of this encounter
[2025-02-08 13:21] LABS: Anion Gap 16.5 mEq/L (5-15); Blood Urea Nitrogen 16 mg/dl (7-17); Calcium 10.0 mg/dl (8.4-10.2); Carbon Dioxide 28 mmol/L (22.0-30.0); Chloride 99 mmol/L (98-107); Creatinine,Serum 0.60 mg/dl (0.52-1.04); Estimated Glomerular Filt Rate 105 ml/min (>60); GFR (African American) 127 ML/MIN (>60); Glucose 99 mg/dl (74-100); Potassium 4.5 mmoL/L (3.5-5.1); Sodium 139 mmol/L (136-145)
== END 2025-02-08 23:59 | disposition home or self-care (01) ==
LOC: LAB 12:14
PROVIDERS: PCP Student in an Organized Health Care Education/Training Program; Visit Provider Student in an Organized Health Care Education/Training Program
DX: E34.9 Endocrine disorder, unspecified (principal); I15.9 Secondary hypertension, unspecified
CPT/HCPCS: 36415; 80048; 83970

== ENCOUNTER 2025-02-28 13:34 | Outpatient (CLI) | payer OTHER, SELFPAY ==
--- OUTSIDE RECORDS SUMMARY | 2025-02-11 10:30 | XMS_ITS | Encounter Summary ---
Author Organization [employer] ([place], [place], [place], [place]) Address [address] [place] [address] Care Team Providers Care Agricultural Inspector Name Role Phone Lambert Quiroga MD Primary Care Provider +1- [phone] Reason for Visit * Reason Comments Annual Exam Possible UTI Encounter Details Date Type Department Care Team (Late st Contact Info) Description 02/11/2025 10:30 AM EDT Office Visit [facility] Med [address] [facility] [address] [phone] Lambert Quiroga MD [address] [place] [phone] Healthcare maintenance (Primary Dx); Frequent urination; Primary hypertension; Screening for diabetes mellitus; Vitamin D deficiency; Mixed hypercholesterolemia and hypertriglyceridemia; Elevated PTHrP level; Parathyroid abnormality (HCC) Social History Tobacco Use Types Packs/Day Years Used Date Smoking Tobacco: Never Smokeless Tobacco: Never Tobacco Cessation:Counseling Given: Not Answered Alcohol Use Standard Drinks/Week Comments Yes 1 (1 standard drink = 0.6 oz pur e alcohol) [facility] - Mental Health Answer Date Recorde d Little interest or pleasure in doing things Not at all 02/10/2025 Feeling down, depressed, or hopeless Not at all 02/10/2025 Feeling of Stress Not on file 02/10/2025 Family and Community Support Answer Oscar e Recorded Help with Day to Day Activities Not on file 08/22/2023 Feeling Lonely or Isolated Not on file 08/22 Educational Attainment Answer Date Hilario rded Speak language other than Danish at home Not on file 08/22/2023 Want [...] on file documented as of this encounter Last Filed Vital Signs Vital Sign Reading Time Taken Comments Blood Pressure 136/78 02/11/2025 10:44 AM EDT Pulse 89 02/11/2025 10:44 AM EDT Temperature - - Respiratory Rate - - Oxygen Saturation 99% 02/11/2025 10:44 AM EDT Inhaled Oxygen Concentration - - Weight 87 kg (191 lb 12.8 oz) 02/11/2025 10:44 A M EDT Height 160 cm (5' 3 ) 02/11/2025 10:44 AM EDT Body Mass Index 33.98 02/11/2025 10:44 AM EDT documented in this encounter Progress Notes * Lambert Quiroga MD - 02/11/2025 10:30 AM EDT HPI Shelby Camacho is a 55 y.o. female has a past medical history of Anxiety (12/2022), Asthma,Headache, Hypertension, and Obesity. here for yearly wellness examination. Lives with and two kids. Two boys. Works as a occupational therapy aide in [employer] Diet: not doing a lot of dairy. Tries to eat more veggies. Exercise: walking more. Mood: mood has been ok. Sleep has been OK. Getting around 6 hrs/night. IPV: safe in relationships. Alcohol use:drinks almost never. Tobacco/Drug use:never smoked. No vaping. FHx Cancer: father of colon cancer. Sister had breast cancer. Aunt Breast cancer. Brother had a stroke (51)- patient had negative genetic testing. Menses: hysterectomy 2/2 to [employer] infection. No h/o cancer. 2018. Dr. Cortez. Contraception:n/i as above Safety (firearms, seatbelts, smoke detectors, helmets): wears seatbelt. Has smoke detectos. Has carbon monoxide detectors. Sun Protection:wears sunscreen Dental: does see regualry. Wt Readings from Last 3 Encounters: 02/11/25 87 kg (191 lb 12.8 oz) 01/30/24 85.6 kg (188 lb 12.8 oz) 01/24/23 84.2 kg (185 lb 9.6 oz) BP Readings from Last 3 Encounters: 02/11/25 136/78 01/30/24 126/86 01/24/23 97/52 Problem List Items Addressed This Visit Hypertension ROS ROS As above. History Patient Active Problem List Diagnosis Asthma Hormone replacement therapy Hypertension Migraine headache Hepatitis C antibody test positive Objective: Physical Exam BP 136/78 Pulse 89 Ht 1.6 m (5' 3 ) Wt 87 kg (191 lb 12.8 oz) SpO2 99% BMI 33.98 kg/m?? Gen: well appearing 55 y.o. female in no acute distress HEENT: MMM, no scleral icterus NECK: normal ROM CV: RRR, no rubs, murmurs, gallops. Strong peripheral pulses PULM: CTAB, normal work of breathing GI: NTND +BS MSK: no peripheral edema No cva tenderness SKIN: no rashes, no jaundice NEURO: AOx3. Symmetric face. Moves all extremities equally PSYCH: normal mood, congruent affect Assessment/Plan: Shelby Camacho is a 55 y.o. female here for yearly wellness examination. She is overall in very good health. Her blood pressure is well-controlled. Her healthcare maintenance discussion is asbelow. Patient currently on oral estrogen therapy secondary to significant menopausal related symptoms including hot flashes. Patient understands the benefits and risks in detail. She is also utilizing vaginal estrogen for vaginal dryness. We will continue to evaluate the risks and benefits yearly.patient is status post hysterectomy for benign disease and has no contraindications to estrogen therapy. She is current with her vaginal Paps and mammograms regularly. Negative genetic testing for breast cancer. All questions been answered today. Follow-up at least once yearly Presenting with 3 days of worsening urgency frequency dysuria. UA consistent with UTI culture to follow recommended Bactrim counseled on use Patient had elevated calcium on last year's labs. Lab completed last week showed elevated PTH. Ionized calcium vitamin D PTH RP ordered. Consider referral to endocrinology following this evaluation Results for orders placed or performed in visit on 02/11/25 (from the past 12 hours) POCT urinalysis dipstick (auto, w/o scope)(94332) Status: Abnormal Result Value Ref Range Glucose Urine, POC Negative Negative Bilirubin Urine, POC Negative Negative Ketones Urine, POC Negative Negative Specific [place] Urine, POC 1.020 SG Ratio 1.005 SG Ratio, 1.010 SG Ratio, 1.015 SG Ratio, 1.020 SGRatio, 1.025 SG Ratio, 1.030 SG Ratio Blood Urine, POC Trace (A) Negative pH, Urine 6.0 pH units 5.0 pH units, 5.5 pH units, 6.0 pH units, 6.5 pH units, 7.0 pH units, 7.5 pHunits, 8.0 pH units Protein Urine, POC Negative Negative Urobilinogen Urine, POC 0.2 mg/dL 0.2 mg/dL, 1 mg/dL Nitrite Urine, POC Negative Negative Leukocyte Esterase Urine, POC Large (A) Negative 1. Healthcare maintenance 2. Frequent urination POCT urinalysis dipstick (auto, w/o scope)(34887) URINE CULTURE, ROUTINE URINE CULTURE, ROUTINE 3. Primary hypertension CBC with platelet count + automated diff Lipid panel Hemoglobin A1c Calcium, Ionized Vitamin D, 25-Hydroxy 4. Screening for diabetes mellitus CBC with platelet count + automated diff Lipid panel Hemoglobin A1c Calcium, Ionized Vitamin D, 25-Hydroxy 5. Vitamin D deficiency Vitamin D, 25-Hydroxy 6. Mixed hypercholesterolemia and hypertriglyceridemia CBC with platelet count + automated diff Lipid panel Hemoglobin A1c Calcium, Ionized Vitamin D, 25-Hydroxy 7. Elevated PTHrP level 8. Parathyroid abnormality (HCC) PTH-related peptide Healthcare Maintenance Flu Vaccination-due fall Pneumonia Vaccination -X2 per patient need records Zoster Vaccine-X2 done per patient need records COVID Vaccine -bivalent due Tdap (every 10 yrs or ) -due 2029 STI Screen -n/i Hep C Screen (1 time) -AB+ RNA negative. (2021 PCR) CRC screening -5 yr f/u due 01/2028 (5 yr f/u) Breast Cancer Screening -due 07/2025 (negative genetic testing in past 2/2 to sister's hx) Cervical Cancer Screening -s/p total hyst benign causes. Not indicated CT lung screening-never smoker DEXA-due at 67 Wt Readings from Last 3 Encounters: 02/11/25 87 kg (191 lb 12.8 oz) 01/30/24 85.6 kg (188 lb 12.8 oz) 01/24/23 84.2 kg (185 lb 9.6 oz) BP Readings from Last 3 Encounters: 02/11/25 136/78 01/30/24 126/86 01/24/23 97/52 Follow-up: 1 yr documented in this encounter Plan of Treatment Upcoming Encounters Date Type Department Care Team (Late st Contact Info) Description 02/17/2026 10:00 AM EDT Office Visit [facility] [address] [place] [address] [address] Lambert Quiroga MD [address] [place] [phone] Scheduled Orders Name Type Priority Associated Diagnoses Orde r Schedule CBC with platelet count + automated diff Lab Routine Primary hypertension Screening for diabetes mellitus Mixed hypercholesterolemia and hypertriglyceridemia Ordered: 02/11/2025 Lipid panel Lab Routine Primary hypertension Screening for diabetes mellitus Mixed hypercholesterolemia and hypertriglyceridemia Ordered: 02/11/2025 Hemoglobin A1c Lab Routine Primary hypertension Screening for diabetes mellitus Mixed hypercholesterolemia and hypertriglyceridemia Ordered: 02/11/2025 Calcium, Ionized Lab Routine Primary hypertension Screening for diabetes mellitus Mixed hypercholesterolemia and hypertriglyceridemia Ordered: 02/11/2025 Vitamin D, 25-Hydroxy Lab Routine Primary hypertension Screening for diabetes mellitus Vitamin D deficiency Mixed hypercholesterolemia and hypertriglyceridemia Ordered: 02/11/2025 PTH-related peptide Lab Routine Parathyroid abnormality (HCC) Ordered: 02/11/2025 documented as of this encounter Procedures Procedure Name Priority Date/Time Associated Diagnosis Comments POCT URINALYSIS, AUTO W/O SCOPE Routine 02/11/2025 10:57 AM EDT Frequent urination RESULT Routine 02/11/2025 12:00 AM EDT URINE CULTURE, ROUTINE Routine 02/11/2025 12:00 AM EDT Frequent urination documented in this encounter Results * (ABNORMAL) POCT urinalysis dipstick (auto, w/o scope)(75966) (02/11/2025 10:57 AM EDT) Glucose Urine, POC Negative Negative Bilirubin Urine, POC Negative Negative Ketones Urine, POC Negative Negative Specific [place] Urine, POC 1.020 SG Ratio 1.005 SG Ratio, 1.010 SG Ratio, 1.015 SG Ratio, 1.020 SG Ratio, 1.025 SG Ratio, 1.030 SG Ratio Blood Urine, POC Trace(A) Negative pH, Urine 6.0 pH units 5.0 pH units, 5.5 pH units, 6.0 pH units, 6.5 pH units, 7.0 pH units, 7.5 pH units, 8.0 pH units Protein Urine, POC Negative Negative Urobilinogen Urine, POC 0.2 mg/dL 0.2 mg/dL, 1 mg/dL Nitrite Urine, POC Negative Negative Leukocyte Esterase Urine, POC Large(A) Negative 02/11/2025 10:5 7 AM EDT us Lambert Quiroga MD POINT OF CARE TEST ORDERAB LES Final Result * RESULT (02/11/2025 12:00 AM EDT) Result 1 No growth [facility] 02/11/2025 02/11/2025 Narrative [facility] - 02/13/2025 3:08 AM EDT Performed at: - [facility] [id number] Administrative Intern: Steven Saleem PhD, Phone: [phone] us Lambert Quiroga MD PATHOLOGY/CYTOLOGY ORDERAB LES Final Result [facility] * URINE CULTURE, ROUTINE (02/11/2025 12:00 AM EDT) Urine Culture, Routine Final report [facility] 02/11/2025 02/11/2025 Narrative [facility] - 02/13/2025 3:08 AM EDT Performed at: 01 - [facility] [address] [id number] Administrative Intern: Steven Saleem PhD, Phone: [phone] us Lambert Quiroga MD MICROBIOLOGY - GENERAL ORD ERABLES Final Result [facility] documented in this encounter Visit Diagnoses Diagnosis Healthcare maintenance- Primary Frequent urination Urinary frequency Primary hypertension Unspecified essential hypertension Screening for diabetes mellitus Vitamin D deficiency Unspecified vitamin D deficiency Mixed hypercholesterolemia and hypertriglyceridemia Mixed hyperlipidemia Elevated PTHrP level Parathyroid abnormality (HCC) documented in this encounter Care Teams Agricultural Inspector Relationship Specialty Start Date End Date Lambert Quiroga MD [address] [facility] [address] [place] [id number] PCP - General Family Medicine 06/18/22 documented as of this encounter
--- OUTSIDE RECORDS SUMMARY | 2025-02-28 13:42 | XMS_ITS | Clinical Summary ---
Author Organization [facility] Address [address] [place] [address] Phone Care Team Providers Care Vegetable I Farmworker Name Role Phone Refugio Schwarz Unavailable Unavailable Conditions or Problems Problem Name Problem Code Onset Date Status Entry Date Provider Comment Standard Description Annotate Elevated transaminases 911762555 (SNOMED CT) 01/27 Active 01/27 Afsaneh Anthonydorothea Elevated level of transaminase and lactic acid dehydrogenase Neutrophilic leukemoid reaction D72.823 (ICD-10-CM ) 01/13 Inactive 01/13 Janelle W Leukemoid reaction Salpingitis 83296330 (SNOMED CT) 01/20 Inactive 01/20 Janelle W Salpingitis Problem excluded fro m report: Acute Salpingitis/t ubo-ovarian abscess N70.03 (ICD-10-CM ) 01/13 Active 01/13 Janelle W Acute salpingitis and oophoritis Salpingitis 34817214 (SNOMED CT) 01/20 Removed 01/20 Luke Silva MD Salpingitis Acute tubo-ovarian abscess 577476546 (SNOMED CT) 01/13 Inactive 01/13 Hazel Selvin Acute salpingo-oopho ritis Benign Essential Hypertension 8751535 (SNOMED CT) 01/13 Active 01/13 Hazel Selvin Benign essential hypertension Neutrophilic leukemoid reaction D72.823 (ICD-10-CM ) 01/13 Removed 01/13 Hazel Selvin Leukemoid reaction Other obesity due to excess calories 667859542 (SNOMED CT) 01/13 Active 01/13 Osiel Garcia Simple obesity E. Coli sepsis A41.51 (ICD-10-CM ) 01/13 Active 01/13 Janelle Levine Sepsis due to Escherichia coli [E. coli] Medications Medication Instructions Start Date Stop Date Generic Name NDC Provider INVANZ 1 GM INTRAVENOUS SOLUTION RECONSTITUTED 1 gm IV Q 24hrs/OPAT ERTAPENEM SODIUM 90166491077 Annmarie Poon RN FLUCONAZOLE 100 MG TABS one tablet each day FLUCONAZOLE [id number] Luke Silva MD DIFLUCAN 200 MG TABS Take one by mouth once daily. FLUCONAZOLE [id number] Luke CALDERONANZ 1 GM INTRAVENOUS SOLUTION RECONSTITUTED 1 gm IV Q 24hrs/OPAT ERTAPENEM SODIUM 89322285749 Afsaneh Dale RN SINGULAIR 10 MG TABS by mouth daily MONTELUKAST SODIUM 49809255802 Osiel K LISINOPRIL 20 MG TABS by mouth daily LISINOPRIL [id number] Osiel K Medications Administered No information available. [...] in Serum or Plasma Clinical Lists Update: [facility] [place] Patient's prefered method of contact [...] Procedures Code Procedure Name Date Entry Date CPT-10505 Hepatic Function Panel 04/08 [id number] CBC with Differential 2016 CPT-03342 BMP CPT-92810 Sedimentation Rate (ESR) 201 02/08/31 CPT-81248 C- reactive protein CPT-11064 BMP [id number] CBC with Differential 2016 CPT-42918 C- reactive protein CPT-11352 Sedimentation Rate (ESR) 201 02/08/10 CPT-84333 CT scan ABD/Pelvis with contrast CPT-sl STAT Labs CPT-86276 CMP [id number] CBC with Differential 2016 CPT-66015 Sedimentation Rate (ESR) 201 02/07/17 CPT-86778 C- reactive protein CPT-sl STAT Labs CPT-PICREM PICC Removal CPT-DC Discontinue IV antibiotics 2 CPT-yury New Oral Antibiotic CPT-85409 CMP [id number] CBC with Differential 2016 CPT-88795 C- reactive protein CPT-74868 Sedimentation Rate (ESR) 201 02/07/03 CPT-31133 CT scan ABD/Pelvis with contrast CPT-38162 CMP [id number] CBC with Differential 2016 CPT-51807 C- reactive protein CPT-81055 Sedimentation Rate (ESR) 201 02/06/26 CPT-ca Continue IV antibiotics 2016 CPT-11555 CMP [id number] CBC with Differential 2016 CPT-67372 C- reactive protein CPT-93001 Sedimentation Rate (ESR) 201 02/06/19 CPT-wpc Weekly PICC Line Care 01/20 CPT-J1335 Ertapenem CPT-96711 PICC Line Insertion CPT- stat weekly Stat Weekly Labs CPT-ca Continue IV antibiotics 2016 CPT-wpc Weekly PICC Line Care 01/13 CPT-cwl Weekly Labs (Continue) 01/13 CPT-28932 PICC Line Insertion CPT-maryann New IV antibiotic CPT-J1335 Ertapenem CPT-12225 CMP [id number] CBC with Differential 2016 CPT-02927 C- reactive protein CPT-91974 Sedimentation Rate (ESR) 201 02/07/12 Vital Signs [...]
--- OUTSIDE RECORDS SUMMARY | 2025-02-28 13:43 | XMS_ITS | Encounter Summary ---
Author Organization [employer] ([place], [place], [place], [place]) Address [address] [place] [address] Care Team Providers Care Appeals Nurse Name Role Phone Lambert Quiroga MD Primary Care Provider +1- [phone] Reason for Visit * Reason Onset Date Comments Medication Refill 01/18/2025 Encounter Details Date Type Department Care Team (Late st Contact Info) Description 01/18/2025 Refill [facility] Primary Care & Internal Med [address] [address] Lambert Quiroga MD [address] [place] [phone] Social History Tobacco Use Types Packs/Day [...] Date Hilario rded Speak language other than Greek at home Not on file 08/22/2023 Want [...] Description 02/17/2026 10:00 AM EDT Office Visit [facility] Primary Care & Internal Med [address] [place] [phone] Lambert Quiroga MD [address] [place] [phone] documented as of this encounter Visit Diagnoses Not on filedocumented in this encounter Care Teams Appeals Nurse Relationship Specialty [place] [address] [place] [phone] PCP - General Family Medicine 06/18/22 documented as of this encounter
--- OUTSIDE RECORDS SUMMARY | 2025-02-28 13:43 | XMS_ITS | Encounter Summary ---
Author Organization [employer] ([place], [place], [place], [place]) Address [address] [place] [address] Care Team Providers Care Piano Regulator Name Role Phone Lambert Quiroga MD Primary Care Provider +1- [phone] Encounter Details Date Type Department Care Team (Late st Contact Info) Description 02/21/2025 Orders Only [facility] Primary Care & Internal Med [address] [facility] [address] [address] Lambert Quiroga MD [address] [place] [phone] Hematuria (Primary Dx) Social History Tobacco Use Types Packs/Day Years Used Date Smoking Tobacco: Never Smokeless Tobacco: Never Alcohol Use Standard Drinks/Week Comments Yes 1 (1 standard drink = 0.6 oz pur e alcohol) [facility] - Mental Health Answer Date Recorde [...] Date Hilario rded Speak language other than French at home Not on file 08/22/2023 Want [...] Description 02/17/2026 10:00 AM EDT Office Visit [facility] Primary Care & Internal Med [address] [place] [phone] [place] [address] [place], [place] [address] Scheduled Orders Name Type Priority Associated Diagnoses Orde r Schedule Urinalysis w/Microscopic Lab Routine Hematuria Expected: 02/21/2025, Expires: 02/21/2026 documented as of this encounter Visit Diagnoses Diagnosis Hematuria- Primary Hematuria, unspecified documented in this encounter Care Teams Piano Regulator Relationship Specialty Start Date End Date Lambert Quiroga MD [address] [phone] PCP - General Family Medicine 06/18/22 documented as of this encounter
--- OUTSIDE RECORDS SUMMARY | 2025-02-28 13:43 | XMS_ITS | Encounter Summary ---
Author Organization [employer] ([place], [place], [place], [place]) Address [address] [place] [address] Care Team Providers Care Continuity Clerk Name Role Phone Lambert Quiroga MD Primary Care Provider +1- [phone] Reason for Visit * Reason Comments Medication Refill Encounter Details Date Type Department Care Team (Late Contact Info) Description 06/10/2023 Refill [facility] Primary Care & Internal Med [address] [place] [phone] Lambert Quiroga MD [address] [place], [place] [address] [address] Social History Tobacco Use Types [...] Department Care Team (Late Contact Info) Description 02/17/2026 10:00 AM EDT Office Visit [facility] Primary Care & Internal Med [address] [place] [phone] Lambert Quiroga MD [address] [place], [place] [address] [address] documented as of this encounter Visit Diagnoses Not on filedocumented in this encounter Care Teams Continuity Clerk Relationship Specialty Start Date End Date Lambert Quiroga MD [address] [place] [id number] PCP - General Family Medicine 06/18/22 documented as of this encounter
--- OUTSIDE RECORDS SUMMARY | 2025-02-28 13:43 | XMS_ITS | Clinical Summary ---
Author Organization [facility] Address [address] [place] [address] Care Team Providers Care Orthodontic Technician Name Role Phone Radha Miller MD Primary Care Provider + Social History Tobacco Use Types Packs/Day Years Used Date Smoking Tobacco: Never Assessed Abuse Screen Answer Date Recorded Unsafe at Home or Work/School Not on file Feels Threatened by Someone? Not on file 06/2023 Does Anyone Keep You from Co ntacting Others or Doint Things Outside the Home? Not on file 05/14/2023 Physical Sign of Abuse Present Not on file 1 Housing Stability Answer Date Recorded Current Living Arrangements Not on file 05/04 Potentially Unsafe Housing Conditions Not on elliot e 05/14/2023 Family and Community Support Answer Oscar e Recorded Help with Day-to-Day Activities Not on file 05/14/2023 Lonely or Isolated Not on file 05/14/2023 Employment Answer Date Recorded Do you want help finding or keeping work or a george b? Not on file 05/14/2023 Disabilities Answer Date Recorded Concentrating, Remembering, or Making Decisions Difficulty Not on file 05/14/2023 Doing Errands Independently Difficulty Not on fi le 05/14/2023 Education Answer Date Recorded Help with school or training? Not on file Preferred Language Not on file 05/14/2023 Comments Unknown Sex and Gender Information Value Date Recorded Sex Assigned at Not on file Legal Sex Female 9:12 AM EDT Gender Identity Not on file Sexual Orientation Not on file Plan of Treatment Health Maintenance Due Date Last Done Comments ANNUAL PHYSICAL 1972 Annual Gynecologic Pelvic and Breast Exam 1972 HEPATITIS C SCREENING 1972 TDAP/TD VACCINES (1 - Tdap) 01/01/1991 MAMMOGRAM 2012 COLOGUARD 01/01/2017 COLON CANCER SCREENING 5 YEAR SIGMOIDOSCOPY 01/01/2017 COLONOSCOPY 01/01/2017 COLORECTAL CANCER SCREENING 01/01/2017 CT COLONOGRAPHY 01/01/2017 FECAL OCCULT BLOOD TEST 01/01/2017 FIT Testing (1 year) 01/01/2017 Pneumococcal Vaccine 50+ (1 of 1 - PCV) 01/01/2022 ZOSTER VACCINE (1 of 2) 01/01/2022 COVID-19 Vaccine (1 - 2023- season) 2024 INFLUENZA VACCINE 05/04/2025 Insurance BLUE [employer]IELD PPO Care Teams Orthodontic Technician Relationship Specialty Start Date End Date Radha Miller MD [address] [place] [id number] PCP - General Internal Medicine 01/13/17
--- OUTSIDE RECORDS SUMMARY | 2025-02-28 13:43 | XMS_ITS | Encounter Summary ---
Author Organization [employer] ([place], [place], [place], [place]) Address [address] [place] [address] Care Team Providers Care Director Biologics Name Role Phone Lambert Quiroga MD Primary Care Provider +1- [phone] Reason for Visit * Reason Onset Date Comments Medication Refill 02/22/2025 Encounter Details Date Type Department Care Team (Late st Contact Info) Description 02/22/2025 Refill [facility] Primary Care & Internal Med [address] [phone] Lambert Quiroga MD [address] [place] [phone] History of postmenopausal HRT Social History Tobacco Use Types Packs/Day Years Used Date Smoking Tobacco: Never Smokeless Tobacco: Never Alcohol Use Standard Drinks/Week Comments Yes 1 (1 standard drink = 0.6 oz pur e alcohol) [facility] - Mental Health Answer Date Recorde [...] Date Hilario rded Speak language other than Sami at home Not on file 08/22/2023 Want [...] Description 02/17/2026 10:00 AM EDT Office Visit [facility] Primary Care & Internal Med [address] [place] [phone] Lambert Quiroga MD [address] [place] [phone] documented as of this encounter Visit Diagnoses Diagnosis History of postmenopausal HRT documented in this encounter Care Teams Director Biologics Relationship Specialty Start Date End Date Lambert Quiroga MD [address] [place] [phone] PCP - General Family Medicine 06/18/22 documented as of this encounter
--- OUTSIDE RECORDS SUMMARY | 2025-02-28 13:43 | XMS_ITS | Referral Summary ---
Author Organization [employer] ([place], [place], [place], [place]) Address [address] [place] [address] Care Team Providers Care Machine Installer Name Role Phone Lambert Quiroga MD Primary Care Provider +1- [phone] Encounters Date Type Department Care Team Description 02/24/2025 Refill [facility] Primary Care & Internal Med [address] [place] [phone] Lambert Quiroga MD History of postmenopausal HRT 02/22/2025 Refill [facility] Primary Care & Internal Med [address] [place] [phone] Lambert Quiroga MD History of postmenopausal HRT 02/21/2025 Orders Only [facility] Primary Care & Internal Med [address] [place] [phone] Lambert Quiroga MD Hematuria (Primary Dx) 02/14/2025 Abstract [facility] Primary Care & Internal Med [address] [place] [phone] Lambert Quiroga MD 02/11/2025 Travel 02/11/2025 10:30 AM EDT Office Visit [facility] Primary Care & Internal Med [address] [place] [phone] Lambert Quiroga MD Healthcare maintenance (Primary Dx); Frequent urination; Primary hypertension; Screening for diabetes mellitus; Vitamin D deficiency; Mixed hypercholesterolemia and hypertriglyceridemia; Elevated PTHrP level; Parathyroid abnormality (HCC) 01/31/2025 Orders Only [facility] Primary Care & Internal Med [address] [place] [phone] Sandra Barragan MD 01/18/2025 Refill [facility] Primary Care & Internal Med [address] [place] [phone] Lambert Quiroga MD 12/24/2024 Refill [facility] Primary Care & Internal [address] [phone] Lambert Quiroga MD from Last 3 Months Allergies Active Allergy Reactions Criticality Noted Date Comments Moxifloxacin Low 10/04/2022 1facial redness, rash per patient. Medications multivitamin per tablet Take 1 tablet by mouth daily. Active cetirizine (ZyrTEC) 10 MG tablet Take 1 tablet (10 mg total) by mouth daily. Active estradioL (ESTRACE) 1 MG tabletIndications:H istory of postmenopausal HRT Take 1 tablet (1 mg total) by mouth daily. 90 tablet 3 4 03/14/20 25 Active lisinopriL (ZESTRIL) 20 MG tablet Take 1 tablet (20 mg total) by mouth daily. 90 tablet 5 Active montelukast (SINGULAIR) 10 mg tablet Take 1 tablet (10 mg total) by mouth every morning. 90 tablet 5 Active escitalopram (LEXAPRO) 10 MG tablet 0.5 tablets (5 mg total). 5 Active sulfamethoxazole-tr imethoprim (BACTRIM DS) 800-160 mg per tablet Take 1 tablet by mouth 2 (two) times daily. 6 tablet 5 Active estradioL (ESTRACE) 0.01 % (0.1 mg/gram) vaginal cream Apply one gram three times a week to vagina with tip of finger. 42.5 g 6 5 Active Active Problems Problem Noted Date Diagnosed Date [...] B 06/01/2022,01/10/2022,12/07/2021 Influenza Four-QIV 6MO+ PF IM ([id number]) Influenza Four-QIV PF 18+ YR 05/22/2016 Influenza [...] drink = 0.6 oz pur e alcohol) [facility] - Mental Health Answer Date Recorde d [...] Date Hilario rded Speak language other than North Korean at home Not on file 08/22/2023 Want [...] Pulse 89 02/11/2025 10:44 AM EDT Temperature 36.2 C (97.1 F) 01/24/2023 11:59 AM EDT Respiratory Rate 18 01/24/2023 11:59 AM EDT Oxygen Saturation 99% 02/11/2025 10:44 AM EDT Inhaled Oxygen Concentration - - Weight 87 kg (191 lb 12.8 oz) 02/11/2025 10:44 A M EDT Height 160 cm (5' 3 ) 02/11/2025 10:44 AM EDT Body Mass Index 33.98 02/11/2025 10:44 AM EDT Plan of Treatment Upcoming Encounters Date Type Department Care Team (Late st Contact Info) Description 02/17/2026 10:00 AM EDT Office Visit [facility] Primary Care & Internal Med [address] [place], [place] [phone] Lambert Quiroga MD [address] [place] [phone] Procedures Procedure Name Priority Date/Time Associated Diagnosis Comments POCT URINALYSIS, AUTO W/O SCOPE Routine 02/11/2025 10:57 AM EDT Frequent urination RESULT Routine 02/11/2025 12:00 AM EDT URINE CULTURE, ROUTINE Routine 02/11/2025 12:00 AM EDT Frequent urination BASIC METABOLIC PANEL Routine 02/09/2025 9:39 AM EDT Elevated calcitonin level Secondary hypertension EXTERNAL IMAGING - XR Routine 01/28/2025 11:04 [...] Recently Relevant to Health Maintenance Results * (ABNORMAL) POCT urinalysis dipstick (auto, w/o scope)(21036) (02/11/2025 10:57 AM EDT) Glucose Urine, POC Negative Negative Bilirubin Urine, POC Negative Negative Ketones Urine, POC Negative Negative Specific Constable Urine, POC 1.020 SG Ratio 1.005 SG [...] AM EDT Performed at: 01 - [facility] [address] [id number] Shrimp Boat Captain: Steven Saleem PhD, Phone: [phone] Lambert Quiroga MD PATHOLOGY/CYTOLOGY ORDERAB LES Final Result Performing Organization Address [facility] Phone Number [facility] * URINE CULTURE, ROUTINE (02/11/2025 12:00 AM EDT) Urine Culture, Routine Final report [facility] 02/11/2025 02/11/2025 Narrative [facility] - 02/13/2025 3:08 AM EDT Performed at: 01 - [facility] [id number] Shrimp Boat Captain: Steven Saleem PhD, Phone: [phone] Lambert Quiroga MD MICROBIOLOGY - GENERAL ORD ERABLES Final Result Performing Organization Address [facility] Phone Number [facility] * Basic Metabolic Panel (02/09/2025 9:39 AM EDT) Blood Lambert Quiroga MD LAB BLOOD ORDERABLES Final Result Performing Organization Address [facility] Phone Number [facility] * EXTERNAL IMAGING - XR (01/28/2025 11:04 AM EDT) Only the most recent of2 resultswithin the time period is included. Anatomical Region Laterality Modality Other Sandra Provider HEALTH MAINTENANCE Final Result * MM [...] the next mammogram. At our facility, a igiugig marker is positioned over a visible skin [...] cancer. COMPARISON STUDY: 2022 through 2019 from [facility] FINDINGS: Craniocaudal and mediolateral oblique images of both breasts were obtained in 2D and DBT modes. Synthesized views were reconstructed from DBT data. The breast tissue has pattern b (scattered fibroglandular densities). Asymmetries are stable. There is no evidence of dominant mass, architectural distortion, or suspicious calcifications. The mammogram was interpreted with the benefit of computer aided detection (CAD). Lambert Quiroga MD [facility] ORDERABLES Final Result * (ABNORMAL) Hepatitis [...] - 10/07/2022 12:07 PM EST Performed at: [facility] [id number] Shrimp Boat Captain: Steven Saleem PhD, Phone: [phone] us Lambert Quiroga MD LAB BLOOD ORDERABLES [...] 12:07 PM EST Performed at: 02 - [facility] [id number] Shrimp Boat Captain: Steven Saleem PhD, Phone: [phone] us Lambert Quiroga MD LAB BLOOD ORDERABLES Final Result [facility] from Last 3 Months or Most Recently Relevant to Health Maintenance Insurance [facility] Care Teams Machine Installer Relationship Specialty Start Date End Date Lambert Quiroga MD [address] [facility] [address] [place] [address] PCP - General Family Medicine 06/18/22
--- OUTSIDE RECORDS SUMMARY | 2025-02-28 13:43 | XMS_ITS | Encounter Summary ---
Author Organization [employer] ([place], [place], [place], [place]) Address [address] [place] [address] Care Team Providers Care Band Presser Name Role Phone Lambert Quiroga MD Primary Care Provider +1- [phone] Reason for Visit * Reason Onset Date Comments Medication Refill 02/24/2025 Encounter Details Date Type Department Care Team (Late st Contact Info) Description 02/24/2025 Refill [facility] Primary Care & Internal Med [address] [phone] Lambert Quiroga MD [address] [place] [phone] History of postmenopausal HRT Social History Tobacco Use Types Packs/Day Years Used Date Smoking Tobacco: Never Smokeless Tobacco: Never Alcohol Use Standard Drinks/Week Comments Yes 1 (1 standard drink = 0.6 oz pur e alcohol) [facility] - Mental Health Answer Date Recorde d [...] Date Hilario rded Speak language other than Uzbek at home Not on file 08/22/2023 Want [facility] [address] [place] [phone] Lambert Quiroga MD [address] [place] [phone] documented as of this encounter Visit Diagnoses Diagnosis History of postmenopausal HRT documented in this encounter Care Teams Band Presser Relationship Specialty Start Date End Date Lambert Quiroga MD [address] [place] [phone] PCP - General Family Medicine 06/18/22 documented as of this encounter
--- OUTSIDE RECORDS SUMMARY | 2025-02-28 13:43 | XMS_ITS | Encounter Summary ---
Author Organization [employer] ([place], [place], [place], [place]) Address [address] [place] [address] Care Team Providers Care Warehouse Incentive Selector Name Role Phone Lambert Quiroga MD Primary Care Provider +1- [phone] Encounter Details Date Type Department Care Team (Latest Contact Info) Description 02/11/2025 Travel Social History Tobacco Use Types Packs/Day Years Used Date Smoking Tobacco: Never Smokeless Tobacco: Never Alcohol Use Standard Drinks/Week Comments Yes 1 (1 standard drink = 0.6 oz pur e alcohol) [facility] - Mental Health Answer Date Recorde d [...] Date Hilario rded Speak language other than Zimbabwean at home Not on file 08/22/2023 Want [...] Upcoming Encounters Date Type Department Care Team ( st Contact Info) Description 02/17/2026 10:00 AM EDT Office Visit [facility] Primary Care & Internal Med [address] [place] [phone] Lambert Quiroga MD [address] [phone] documented as of this encounter Visit Diagnoses Not on filedocumented in this encounter Care Teams Warehouse Incentive Selector Relationship Specialty Start Date End Date Lambert Quiroga MD [address] [place] [address] [phone] PCP - General Family Medicine 06/18/22 documented as of this encounter
--- OUTSIDE RECORDS SUMMARY | 2025-02-28 13:43 | XMS_ITS | Encounter Summary ---
Author Organization [employer] ([place], [place], [place], [place]) Address [address] [place] [address] Care Team Providers Care Flow Machine Operator Name Role Phone Lambert Quiroga MD Primary Care Provider +1- [phone] Encounter Details Date Type Department Care Team (Late st Contact Info) Description 02/14/2025 Abstract [facility] Primary Care & Internal Med [address] [facility] [address] [place] [phone] Lambert Quiroga MD [address] [place] [phone] Social History Tobacco Use Types Packs/Day Years Used Date Smoking Tobacco: Never Smokeless Tobacco: Never Alcohol Use Standard Drinks/Week Comments Yes 1 (1 standard drink = 0.6 oz pur e alcohol) [facility] - Mental Health Answer Date Recorde [...] Date Hilario rded Speak language other than Guatemalan at home Not on file 08/22/2023 Want [...] Description 02/17/2026 10:00 AM EDT Office Visit [facility] Primary Care & Internal Med [address] [place] [phone] [place] [address] [place] [phone] documented as of this encounter Visit Diagnoses Not on filedocumented in this encounter Care Teams Flow Machine Operator Relationship Specialty Start [place] [address] [place] [phone] PCP - General Family Medicine 06/18/22 documented as of this encounter
--- OUTSIDE RECORDS SUMMARY | 2025-02-28 13:43 | XMS_ITS | Encounter Summary ---
Author Organization [employer] ([place], [place], [place]) Address [address] [place] [address] Care Team Providers Care Over The Road Driver Name Role Phone Lambert Quiroga MD Primary Care Provider +1- [phone] Reason for Visit * Reason Onset Date Comments Medication Refill 12/14/2022 Encounter Details Date Type Department Care Team (Late Contact Info) Description 12/14/2022 Refill [facility] Primary Care & Internal Med [address] [place] [phone] Lambert Quiroga MD [address] [place] [phone] Social History Tobacco Use Types Packs/Day [...] [facility] [address] [place] [phone] Lambert Quiroga MD [address] [facility] [address] [place] [phone] documented as of this encounter Visit Diagnoses Not on filedocumented in this encounter Care Teams Over The Road Driver Relationship Specialty Start Date End Date Lambert Quiroga MD [address] [facility] [address] [place] [phone] PCP - General Family Medicine 06/18/22 documented as of this encounter
--- OUTSIDE RECORDS SUMMARY | 2025-02-28 13:43 | XMS_ITS | Encounter Summary ---
Author Organization [employer] ([place], [place], [place]) Address [address] [place] [address] Care Team Providers Care Basket Braider Name Role Phone Lambert Quiroga MD Primary Care Provider +1- [phone] Encounter Details Date Type Department Care Team ([facility] Contact Info) Description 01/31/2025 Orders Only [facility] Primary Care & Internal Med [address] [place] [address] [phone] Provider, MD Sandra [address] [place] [address] Social History Tobacco Use Types Packs/Day Years [...] Date Hilario rded Speak language other than [place] at home Not on file 08/22/2023 Want [...] Description 02/17/2026 10:00 AM EDT Office Visit [facility] Primary Care & Internal Med [address] [phone] Lambert Quiroga MD [address] [phone] documented as of this encounter [...] on filedocumented in this encounter Care Teams Basket Braider Relationship Specialty Start Date End Date Lambert Quiroga MD [address] [phone] PCP - General Family Medicine 06/18/22 documented as of this encounter
--- OUTSIDE RECORDS SUMMARY | 2025-02-28 13:43 | XMS_ITS | Clinical Summary ---
Author Organization [employer] ([place], [place], [place], [place]) Address [address] [place] [address] Care Team Providers Care Policy Change Clerk Name Role Phone Lambert Quiroga MD Primary Care Provider +1- [phone] Allergies Active Allergy Reactions Criticality Noted Date [...] with tip of finger. 42.5 g 6 Active Active Problems Problem Noted Date Diagnosed [...] Type Department Care Team Description 02/24/2025 Refill [facility] Primary Care & Internal Med [address] [place] [phone] Lambert Quiroga MD History of postmenopausal HRT 02/22/2025 Refill [facility] Primary Care & Internal Med [address] [place] [phone] Lambert Quiroga MD History of postmenopausal HRT 02/21/2025 Orders Only [facility] Primary Care & Internal Med [address] [place] [phone] Lambert Quiroga MD Hematuria (Primary Dx) 02/14/2025 Abstract [facility] Primary Care & Internal Med [address] [place] [phone] Lambert Quiroga MD 02/11/2025 10:30 AM EDT Office Visit [facility] Primary Care & Internal Med [address] [place] [phone] Lambert Quiroga MD Healthcare maintenance (Primary Dx); Frequent urination; Primary hypertension; Screening for diabetes mellitus; Vitamin D deficiency; Mixed hypercholesterolemia and hypertriglyceridemia; Elevated PTHrP level; Parathyroid abnormality (HCC) 02/11/2025 Travel 01/31/2025 Orders Only [facility] Primary Care & Internal Med [address] [place] [phone] Sandra Barragan MD 01/18/2025 Refill [facility] Primary Care & Internal Med [address] [place] [phone] Lambert Quiroga MD 12/24/2024 Refill [facility] Primary Care & Internal Med [address] [place] [phone] Lambert Quiroga MD from Last 3 Months Immunizations Name Administration Dates Next Due Hepatitis A Adult 11/17/2018,04/21/2018 Hepatitis B 06/01/2022,01/10/2022,12/07/2021 Influenza Four-QIV 6MO+ PF IM ([id number]) 2 Influenza Four-QIV PF 18+ YR 05/22/2016 [...] drink = 0.6 oz pur e alcohol) [facility] - Mental Health Answer Date Recorde [...] Description 02/17/2026 10:00 AM EDT Office Visit [facility] Primary Care & Internal Med [address] [facility] [address] [phone] Lambert Quiroga MD [address] [place] [address] [phone] Health Maintenance Due Date Last Done Comments CT Colonography 1972 FOBT/FIT 1972 Fit-DNA (Cologuard) 1972 Sigmoidoscopy 1972 Pneumococcal 50+ years (2 of 2 - PPSV23) 04/17/2015 02/20/2015 Shingles Vaccine (Zoster) (1 of 2) 01/01/2022 COVID-19 VACCINE (4 - 2023-2 5 season) 2024 05/17/2021, 09/28/2020, 08/31/2020 Influenza Vaccine (#1) 2025 , 06/01/2022, 04/22/2018, Additional history exists Lipid Panel 10/04/2025 10/04/2022 Depression Screening (12+) 02/10/2026 02/10/2025, Tobacco Cessation Counseling and Screening (12+) 02/11/2026 02/11/2025 Breast Cancer Screening 07/06/2026 07/06/20 24, 12/11/2022, 06/18/2022, Additional history exists DTAP/TDAP/TD VACCINES [...] * (ABNORMAL) POCT urinalysis dipstick (auto, w/o scope)(71002) (02/11/2025 10:57 AM EDT) Glucose Urine, POC Negative Negative Bilirubin Urine, POC Negative Negative Ketones Urine, POC Negative Negative Specific Scuddy Urine, POC 1.020 SG Ratio 1.005 SG [...] Large(A) Negative 02/11/2025 10:5 7 AM EDT Lambert Quiroga MD POINT OF CARE TEST ORDERAB LES Final Result * RESULT (02/11/2025 12:00 AM EDT) Result 1 No growth [facility] 02/11/2025 02/11/2025 Narrative [facility] - 02/13/2025 3:08 AM EDT Performed at: [address] [place] [id number] Territory Manager General Sales: Steven Saleem PhD, Phone: [phone] Lambert Quiroga MD PATHOLOGY/CYTOLOGY ORDERAB LES Final Result Performing Organization Address [facility] Co de Phone Number [facility] * URINE CULTURE, ROUTINE (02/11/2025 12:00 AM EDT) Urine Culture, Routine Final report [facility] 02/11/2025 02/11/2025 Narrative [facility] - 02/13/2025 3:08 AM EDT Performed at: 01 - [facility] [id number] Territory Manager General Sales: Steven Saleem PhD, Phone: [phone] Lambert Quiroga MD MICROBIOLOGY - GENERAL ORD ERABLES Final Result Performing Organization Address [facility] [[email or web address]] de Phone Number [facility] * Basic Metabolic Panel (02/09/2025 9:39 AM EDT) Blood Lambert Quiroga MD LAB BLOOD ORDERABLES Final Result Performing Organization Address [facility] [[email or web address]] de Phone Number [facility] * EXTERNAL IMAGING - [...] the next mammogram. At our facility, a umkumiut marker is positioned over a visible skin [...] cancer. COMPARISON STUDY: 2022 through 2019 from [facility] FINDINGS: Craniocaudal and mediolateral oblique images of both breasts were obtained in 2D and DBT modes. Synthesized views were reconstructed from DBT data. The breast tissue has pattern b (scattered fibroglandular densities). Asymmetries are stable. There is no evidence of dominant mass, architectural distortion, or suspicious calcifications. The mammogram was interpreted with the benefit of computer aided detection (CAD). us Lambert Quiroga MD IMG MAMMOGRAPHY ORDERABLES Final [...] 12:07 PM EST Performed at: 02 - [facility] [id number] Territory Manager General Sales: Steven Saleem PhD, Phone: [phone] us Lambert Quiroga MD LAB BLOOD ORDERABLES [...] PM EST Performed at: 02 - [facility] [address] [id number] Territory Manager General Sales: Steven Saleem PhD, Phone: [phone] us Lambert Quiroga MD LAB BLOOD ORDERABLES Final Result [facility] from Last 3 Months or Most Recently Relevant to Health Maintenance Insurance [facility] Care Teams Policy Change Clerk Relationship Specialty [place] [address] [place] [address] [place] [phone] PCP - General Family Medicine 06/18/22
--- OUTSIDE RECORDS SUMMARY | 2025-02-28 13:43 | XMS_ITS | Encounter Summary ---
Author Organization [employer] ([place]) Address [address] [place] [address] Care Team Providers Care Audio Video Tech Name Role Phone Lambert Quiroga MD Primary Care Provider +1- [phone] Reason for Visit * Reason Onset Date Comments Medication Refill 12/22/2023 Encounter Details Date Type Department Care Team (Late st Contact Info) Description 12/22/2023 Refill [facility] Primary Care & Internal Med [address] [phone] Lambert Quiroga MD [address] [place] [phone] Social History Tobacco Use Types Packs/Day [...] Date Hilario rded Speak language other than [place] at home Not on file 08/22/2023 Want [...] Description 02/17/2026 10:00 AM EDT Office Visit [facility] Primary Care & Internal Med [address] [place] [phone] Lambert Quiroga MD [address] [place] [phone] documented as of this encounter Visit Diagnoses Not on filedocumented in this encounter Care Teams Audio Video Tech Relationship Specialty [place] [address] [place] [phone] PCP - General Family Medicine 06/18/22 documented as of this encounter
[2025-02-28 14:37] LABS: Hematocrit 39.2 % (37.0-47.0); Hemoglobin 11.8 g/dL (12.2-16.2); Immature Granulocytes % 0.5 %; Mean Corpuscular HGB Conc 30.1 g/dL (31.8-35.4); Mean Corpuscular Hemoglobin 21.6 pg (27.0-31.2); Mean Corpuscular Volume 71.8 fl (81-99); Nucleated Red Blood Cells % 0 %; Platelet Count 292 K/mm3 (142-424); Red Blood Count 5.46 M/mm3 (4.20-5.40); Red Cell Distribution Width-SD 38.5 fL; White Blood Count 6.5 K/mm3 (4.8-10.8)
[2025-02-28 15:06] LABS: Cholesterol 171 mg/dl (140-200); HDL Cholesterol 41 mg/dl (40-60); Triglycerides 202 mg/dl (30-150)
[2025-02-28 15:24] LABS: 25-OH Vitamin D, Total 49.0 ng/mL (30-100)
[2025-02-28 15:40] LABS: Hemoglobin A1C 5.7 % (4.0-6.0)
[2025-03-01 18:13] LABS: Calcium, Ionized 5.2 mg/dL (4.5-5.6)
== END 2025-02-28 23:59 | disposition home or self-care (01) ==
LOC: LAB 13:35
PROVIDERS: PCP Student in an Organized Health Care Education/Training Program; Visit Provider Student in an Organized Health Care Education/Training Program
DX: E78.2 Mixed hyperlipidemia; Z13.1 Encounter for screening for diabetes mellitus; E55.9 Vitamin D deficiency, unspecified
CPT/HCPCS: 36415; 80061; 82306; 82330; 83036; 85025

== ENCOUNTER 2025-05-13 13:30 | Outpatient (CLI) | payer OTHER, SELFPAY ==
[2025-05-13 14:20] LABS: Hematocrit 40.9 % (37.0-47.0); Hemoglobin 12.7 g/dL (12.2-16.2); Immature Granulocytes % 0.3 %; Mean Corpuscular HGB Conc 31.1 g/dL (31.8-35.4); Mean Corpuscular Hemoglobin 22.6 pg (27.0-31.2); Mean Corpuscular Volume 72.9 fl (81-99); Nucleated Red Blood Cells % 0 %; Platelet Count 317 K/mm3 (142-424); Red Blood Count 5.61 M/mm3 (4.20-5.40); Red Cell Distribution Width-SD 38.6 fL; White Blood Count 6.2 K/mm3 (4.8-10.8)
[2025-05-13 14:49] LABS: Alanine Aminotransferase 65 U/L (12-78); Albumin Level 4.2 g/dl (3.5-5.0); Albumin/Globulin Ratio 1.3 (1.1-1.8); Alkaline Phosphatase 107 U/L (38-126); Anion Gap 13.3 mEq/L (5-15); Aspartate Amino Transferase 38 U/L (14-36); Bilirubin,Total 0.6 mg/dl (0.2-1.3); Blood Urea Nitrogen 14 mg/dl (7-17); Calcium 9.8 mg/dl (8.4-10.2); Carbon Dioxide 28 mmol/L (22.0-30.0); Chloride 103 mmol/L (98-107); Creatinine,Serum 0.60 mg/dl (0.52-1.04); Estimated Glomerular Filt Rate 105 ml/min (>60); GFR (African American) 127 ML/MIN (>60); Globulin 3.3 g/dL (1.3-3.2); Glucose 93 mg/dl (74-100); Potassium 4.3 mmoL/L (3.5-5.1); Sodium 140 mmol/L (136-145); Total Protein,Serum 7.5 g/dl (6.3-8.2)
[2025-05-13 15:39] LABS: Vitamin B12 761 pg/mL (239-931)
[2025-05-13 18:49] LABS: Iron 155 ug/dL (37-170)
[2025-05-13 19:09] LABS: Total Iron Binding Capacity 357 ug/dL (265-497)
[2025-05-13 19:26] LABS: Ferritin 72.3 ng/ml (11.1-264)
== END 2025-05-13 23:59 | disposition home or self-care (01) ==
LOC: LAB 13:31
PROVIDERS: PCP Student in an Organized Health Care Education/Training Program; Visit Provider Student in an Organized Health Care Education/Training Program
DX: D64.9 Anemia, unspecified (principal)
CPT/HCPCS: 36415; 80053; 82607; 82728; 83540; 83550; 85025